=== PATIENT | female | born 2000 | race Hispanic/Latino ===

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

== ENCOUNTER 2019-03-06 23:37 | Emergency (ER) | payer OTHER ==
[2019-03-06 23:54] LABS: APPEARANCE,URINE Cloudy (CLEAR); BILIRUBIN,URINE Negative (NEGATIVE); COLOR,URINE Yellow (YELLOW); GLUCOSE, URINE (UA) Negative (NEGATIVE); KETONES,URINE Negative (NEGATIVE); LEUKOCYTE ESTERASE ,URINE Small (NEGATIVE); NITRATE,URINE Negative (NEGATIVE); OCCULT BLOOD,URINE Negative (NEGATIVE); PH,URINE 6.5 (5.0-8.0); PROTEIN,URINE Negative (NEGATIVE)
[2019-03-07 00:05] LABS: AMORPHOUS SEDIMENT,UR Few /LPF (None Seen); BACTERIA,URINE Few /HPF (None Seen); MUCUS,URINE Few LPF (None Seen); RBC,URINE None Seen /HPF (0-1); SQUAMOUS EPITHELIAL CELL,UR Moderate /HPF (0-2)
[2019-03-07] MEDS ORDERED: SODIUM CHLORIDE 0.9% 1000ML 1,000 ML IV ONE (00:40)
[2019-03-07] MEDS ORDERED: ACETAMINOPHEN EXTRA STRENGTH 500 MG TABLET ONE (00:41)
[2019-03-07 00:50] LABS: BASOPHILS % (AUTO) 0.5 % (0.0-5.0); EOSINOPHILS % (AUTO) 1.9 % (0.0-8.0); HEMATOCRIT 36.7 % (36-48); LYMPHOCYTES % (AUTO) 25.9 % (21.0-51.0); MEAN CORPUSCULAR HEMOGLOBIN 26.5 pg (27.0-33.0); MEAN CORPUSCULAR HGB CONC 32.5 g/dL (32.0-36.0); MEAN CORPUSCULAR VOLUME 81.3 fL (80-100); MONOCYTES % (AUTO) 5.2 % (3.0-13.0); NEUTROPHILS % (AUTO) 66.5 % (40.0-77.0); PLATELET COUNT (AUTO) 289 K/uL (130-400); RED BLOOD CELL COUNT(AUTO) 4.51 MIL/uL (4.00-5.50); RED CELL DISTRIBUTION WIDTH 15.6 % (11.0-15.5); WHITE BLOOD COUNT (AUTO) 16.7 K/uL (4.8-10.8)
[2019-03-07 01:00] LABS: CARBON DIOXIDE 27 mmol/L (21-32); CHLORIDE 106 mmol/L (101-111); CREATININE 0.6 mg/dL (0.5-1.5); GLOMERULAR FILTR. RATE CALC 137 mL/min (>60); GLUCOSE,RANDOM 92 mg/dL (70-105); POTASSIUM 3.6 mmol/L (3.5-5.1); SODIUM SERUM 142 mmol/L (136-145); UREA NITROGEN, BLOOD 12 mg/dL (7-18)
[2019-03-07 01:05] LABS: ALANINE AMINOTRANSFERASE 33 U/L (12-78); ALBUMIN 3.3 g/dL (3.5-5.0); ASPARTATE AMINOTRANSFERASE 19 U/L (10-37); BILIRUBIN,DIRECT < 0.1 mg/dL (0.0-0.3); BILIRUBIN,TOTAL 0.2 mg/dL (0.2-1.0); LIPASE 150 U/L (114-286); TOTAL PROTEIN, SERUM 7.6 g/dL (6.0-8.3)
== END 2019-03-07 03:52 | disposition home or self-care (01) ==
LOC: EDH 23:37
DX: R10.30 Lower abdominal pain, unspecified (principal); D72.829 Elevated white blood cell count, unspecified; R11.2 Nausea with vomiting, unspecified; Z72.0 Tobacco use
CPT/HCPCS: 36415; 76705; 76830; 80048; 80076; 81001; 81025; 83690; 85025; 87210; 87486; 87797; 99284; J7030

== ENCOUNTER 2019-03-13 09:30 | Emergency (ER) | payer OTHER | END 2019-03-13 10:35 | disposition home or self-care (01) | LOC: EDH 09:30 | DX: R10.30 Lower abdominal pain, unspecified (principal); M54.5 Low back pain; Z72.0 Tobacco use | CPT/HCPCS: 99281 ==

== ENCOUNTER 2019-09-10 23:38 | Emergency (ER) | payer BC, OTHER ==
[2019-09-11] MEDS ORDERED: AZITHROMYCIN 250 MG TABLET PO ONE (01:58)
[2019-09-11] MEDS ORDERED: CEFTRIAXONE SODIUM 500 MG VIAL ONE (01:58)
[2019-09-11] MEDS ORDERED: LIDOCAINE HCL-MPF 1% 2ML VIAL ONE (01:59)
== END 2019-09-11 03:04 | disposition home or self-care (01) ==
LOC: EDH 23:38
DX: B37.3 Candidiasis of vulva and vagina (principal); N72 Inflammatory disease of cervix uteri
CPT/HCPCS: 36415; 80053; 81001; 81025; 85025; 87088; 87210; 87486; 87797; 96372; 99283; J0696; J3490

== ENCOUNTER 2022-01-02 09:44 | Emergency (ER) | payer BC ==
[~2022-01-02] VITALS: Ht 175.3 cm; Wt 102.1 kg
[2022-01-02 09:45] VITALS: BP 114/75
[2022-01-02 10:28] LABS: BILIRUBIN,URINE NEGATIVE (NEGATIVE); COLOR,URINE YELLOW (YELLOW); GLUCOSE, URINE (UA) NEGATIVE (NEGATIVE); KETONES,URINE NEGATIVE (NEGATIVE); LEUKOCYTE ESTERASE ,URINE NEGATIVE Leu/uL (NEGATIVE); NITRATE,URINE NEGATIVE (NEGATIVE); OCCULT BLOOD,URINE SMALL (NEGATIVE); PH,URINE 8.5 (5.0-8.0); PROTEIN,URINE 20 mg/dL (NEGATIVE)
[2022-01-02 10:30] LABS: HCG,QUALITATIVE URINE NEGATIVE (NEGATIVE)
[2022-01-02 10:37] LABS: BACTERIA,URINE RARE /HPF (None Seen); MUCUS,URINE FEW LPF (None Seen); OTHER CASTS, URINE 2 /LPF (None Seen); SQUAMOUS EPITHELIAL CELL,UR RARE /HPF (0-2)
[2022-01-02 10:39] LABS: APPEARANCE,URINE HAZY (CLEAR)
[2022-01-02 10:40] LABS: BASOPHILS % (AUTO) 0.9 % (0.0-5.0); EOSINOPHILS % (AUTO) 1.1 % (0.0-8.0); HEMATOCRIT 37.2 % (36-48); LYMPHOCYTES % (AUTO) 32.4 % (21.0-51.0); MEAN CORPUSCULAR HEMOGLOBIN 25.7 pg (27.0-33.0); MEAN CORPUSCULAR HGB CONC 31.7 g/dL (32.0-36.0); MONOCYTES % (AUTO) 5.1 % (3.0-13.0); NEUTROPHILS % (AUTO) 60.2 % (40.0-77.0); PLATELET COUNT (AUTO) 330 K/uL (130-400); RED BLOOD CELL COUNT(AUTO) 4.59 MIL/uL (4.00-5.50); RED CELL DISTRIBUTION WIDTH 13.8 % (11.0-15.5); WHITE BLOOD COUNT (AUTO) 7.8 K/uL (4.8-10.8)
[2022-01-02 10:51] LABS: CREATININE 0.8 mg/dL (0.5-1.5); POTASSIUM 3.7 mmol/L (3.5-5.1)
[2022-01-02 11:00] LABS: ALBUMIN 3.6 g/dL (3.5-5.0); TOTAL PROTEIN, SERUM 7.8 g/dL (6.0-8.3)
== END 2022-01-02 12:56 | disposition home or self-care (01) ==
LOC: EDH 09:44
DX: N93.8 Other specified abnormal uterine and vaginal bleeding (principal); Z98.890 Other specified postprocedural states
CPT/HCPCS: 36415; 76856; 80053; 81001; 81025; 85025; 86850; 86900; 86901

== ENCOUNTER → 2022-04-24 | Emergency (ER) | payer BC, OTHER ==
[~2022-04-24] VITALS: Ht 177.8 cm; Wt 98.4 kg
[2022-04-24 07:51] VITALS: BP 124/78
== END | disposition left against medical advice (07) ==
LOC: EDH 07:49
DX: R21 Rash and other nonspecific skin eruption (principal); Z53.21 Procedure and treatment not carried out due to patient leaving prior to being seen by health care provider

== ENCOUNTER 2022-05-05 00:21 | Emergency (ER) | payer SELFPAY ==
[~2022-05-05] VITALS: Ht 177.8 cm; Wt 99.8 kg
[2022-05-05 00:22] VITALS: BP 116/72
== END 2022-05-05 02:48 | disposition left against medical advice (07) ==
LOC: EDH 00:21
DX: R10.9 Unspecified abdominal pain (principal); Z53.21 Procedure and treatment not carried out due to patient leaving prior to being seen by health care provider

== ENCOUNTER 2022-06-26 14:14 | Observation (INO) | payer MEDICAID ==
[~2022-06-26] VITALS: Ht 177.8 cm; Wt 106.6 kg
[2022-06-26 14:42] LABS: APPEARANCE,URINE CLOUDY (CLEAR); BILIRUBIN,URINE NEGATIVE (NEGATIVE); COLOR,URINE YELLOW (YELLOW); GLUCOSE, URINE (UA) NEGATIVE (NEGATIVE); KETONES,URINE NEGATIVE (NEGATIVE); LEUKOCYTE ESTERASE ,URINE 250 Leu/uL (NEGATIVE); NITRATE,URINE NEGATIVE (NEGATIVE); PROTEIN,URINE 10 mg/dL (NEGATIVE); UROBILINOGEN,URINE 0.2 mg/dL (0.2-1.0)
[2022-06-26 14:50] LABS: AMPHET/METH SCREEN,URINE NEGATIVE (NEGATIVE); BARBITURATE SCREEN, URINE NEGATIVE (NEGATIVE); BENZODIAZEPINES SCREEN,URINE NEGATIVE (NEGATIVE); CANNABINOID SCREEN,URINE NEGATIVE (NEGATIVE); COCAINE SCREEN,URINE NEGATIVE (NEGATIVE); OPIATE SCREEN,URINE NEGATIVE (NEGATIVE); PHENCYCLIDINE SCREEN,URINE NEGATIVE (NEGATIVE)
[2022-06-26] MEDS ORDERED: LACTATED RINGERS 1000ML 1,000 ML IV ONE (14:50)
[2022-06-26 14:54] LABS: BACTERIA,URINE RARE /HPF (None Seen); MUCUS,URINE RARE LPF (None Seen); SQUAMOUS EPITHELIAL CELL,UR FEW /HPF (0-2)
[2022-06-26] MEDS ORDERED: LACTATED RINGERS 1000ML IV SCH (15:00)
[2022-06-26 15:04] VITALS: BP 115/58
[2022-06-26] MEDS ORDERED: CEFTRIAXONE 1G VIAL IVP SCH (15:30)
== END 2022-06-26 16:20 | disposition home or self-care (01) ==
LOC: LDH 14:14
PROVIDERS: ADMIT Obstetrics & Gynecology; ATTEND Obstetrics & Gynecology
DX: O99.891 Other specified diseases and conditions complicating pregnancy (principal); M54.9 Dorsalgia, unspecified; Z3A.26 26 weeks gestation of pregnancy
CPT/HCPCS: 96374; 96361; 80305; 87088; 81001; 76805; G0378 ×2; G0379; J7120 ×2; J0696; 96360

== ENCOUNTER 2024-12-23 16:08 | Inpatient (IN) | payer BC, MEDICAID ==
[~2024-12-23] VITALS: Ht 175.3 cm; Wt 88.1 kg
[2024-12-23 17:14] LABS: IMMATURE GRANULOCYTE ABSOLUTE 0.02 K/uL (0-1); NUCLEATED RED BLOOD CELLS 0.0 % (0.0-0.19); PLATELET COUNT (AUTO) 297 K/uL (130-400); RED BLOOD CELL COUNT(AUTO) 4.54 MIL/uL (4.00-5.50); RED CELL DISTRIBUTION WIDTH 14.7 % (11.0-15.5); WHITE BLOOD COUNT (AUTO) 6.9 K/uL (4.8-10.8)
[2024-12-23] MEDS: 0.9%NACL 1000ML 1,000 ML IV ONE (17:16)
--- NOTE | 2024-12-23 17:22 | HMCIMG ---
EXAM: CR Chest, 1 View. CLINICAL HISTORY: cp COMPARISON: None provided. FINDINGS: LUNGS: The lungs show no infiltrate or other acute finding. PLEURAL SPACES: No pleural effusion or pneumothorax. MEDIASTINUM: Cardiac size and mediastinal contours within normal limits. BONES: No acute osseous abnormality. IMPRESSION: No acute cardiopulmonary pathology is evident. /[place]
[2024-12-23 17:24] LABS: CREATININE 0.6 mg/dL (0.5-1.0); GLOMERULAR FILTR. RATE CALC 128.0 mL/min (>90); GLUCOSE,RANDOM 88.0 mg/dL (70-105); SODIUM SERUM 142.0 mmol/L (136-145); UREA NITROGEN, BLOOD 15.0 mg/dL (7-18)
[2024-12-23 17:37] LABS: ASPARTATE AMINOTRANSFERASE 558.0 U/L (10-37); TOTAL PROTEIN, SERUM 8.2 g/dL (6.0-8.3)
--- NOTE | 2024-12-23 18:45 | ERN ---
ED Note History of Present Illness Stated Complaint: ABDOMINAL PAIN Chief Complaint: Abdominal Pain Time Seen by MD: 16:15 Time Seen by Midlevel: 16:15 Dictation: The patient is a 24-year-old female with a history of gallstones who presents to the emergency department with complaints of right upper abdominal pain that radiates to her chest associated with nausea and nonbloody vomiting. Patient denies any fevers but reports chills. Reports that she was seen at an urgent care a month ago and was told she had gallstones. Allergies: Coded Allergies: No Known Drug Allergies (Unverified Allergy, Unknown, 02/07/17) Home Meds No Active Prescriptions or Reported Meds Past Medical History Past Medical History: No Pertinent History Surgical History: Other Surgical History Other: SELWYN GRANADOS RN Note Reviewed/Agreed w/PFSH: Yes Review of System Dictation Constitutional: Negative for fever,chills, and weight loss Eyes: Negative for injury, pain,redness, and discharge ENT: Negative for injury,pain or swelling Cardiovascular: Negative for chest pain, palpitations, and edema Respiratory: Negative for shortness of breath, cough, and wheezing, Abdomen/GI: Negative for, diarrhea, and constipation positive for abdominal pain, nausea, vomiting Back: Negative for injury and pain : Negative for injury, bleeding and discharge MS/Extremity: Negative for injury and deformity Skin: Negative for rash, and discoloration Neuro: Negative for headache, weakness, numbness, tingling, and seizure Psych: Negative for suicide ideation, homicidal ideation, and hallucinations Initial Vital Sign VS Vital Signs Date Time Temp Pulse Resp B/P (MAP) Pulse Ox O2 Delivery O2 Flow Rate FiO2 12/23/24 16:09 98.2 80 18 126/91 96 Room Air 12/23/24 17:05 0 21 Physical Exam Dictation Vital Signs reviewed General Appearance: Alert, oriented x 3, no acute distress, well developed, nourished. Head and Face: non-traumatic. Eyes: PERRL, pink conjunctivas, eyelid no trauma, anterior chamber with arcus senilis. Ears: Pinnas intact and no signs of trauma or erythema ear canals clear and no discharge TM no erythema Nose: No discharge, no bleeding. Oropharynx: Mouth normal, tongue pink. pharynx clear,no erythema, tonsils no exudates, no abscesses noted, mucous membrane moist Neck: Supple, non-tender, no thyromegaly, no masses, no JVD, no bruits Breast:Deferred Chest:No tenderness, no crepitus, no paradoxical movement, no retractions Lungs:Clear, well-ventilated, symmetric, no rales, no wheezing, no rhonchi, no stridor, good breath sounds bilaterally Heart: Regular rate, regular rhythm, no murmur, no gallops Vascular: no peripheral edema, Abdomen: Soft, positive bowel sounds, nondistended, no guarding, Right upper abdominal tenderness no rebound, no masses no hepatomegaly, no splenomegaly, no Pineda's sign, no hernias. Rectal: Deferred Genital: Deferred Neurological: Normal speech, motor function intact, sensory function intact Musculoskeletal: Neck nontender, full range of motion, back nontender, full range of motion, Extremities: nontender, full range of motion Skin: Color pink, dry, no turgor, no rash, no lacerations, no abrasions, no contusions. Lymphatic: Deferred Results (Laboratory/Radiology) Laboratory/Radiology Laboratory Tests Test 12/23/24 13:46 12/23/24 17:06 Urine Color DARK-YELLOW (YELLOW) Urine Appearance CLEAR (CLEAR) Urine pH 6.5 (5.0-8.0) Urine Specific [place] 1.032 (1.001-1.031) Urine Protein 20 mg/dL (NEGATIVE) H Urine Glucose (UA) NEGATIVE mg/dL (NEGATIVE) Urine Ketones NEGATIVE mg/dL (NEGATIVE) Urine Occult Blood NEGATIVE (NEGATIVE) Urine Nitrate NEGATIVE (NEGATIVE) Urine Bilirubin 2 mg/dL (NEGATIVE) H Urine Urobilinogen 4.0 mg/dL (0.2-1.0) H Urine Leukocyte Esterase 25 Marcia/uL (NEGATIVE) H Urine RBC 2-5 /HPF (0-1) H Urine WBC 0-1 /HPF (0-1) Urine Squamous Epithelial Cells MANY /HPF (0-2) Urine Bacteria None /HPF (None Seen) Urine HCG, Qualitative NEGATIVE (NEGATIVE) White Blood Count 6.9 K/uL (4.8-10.8) Red Blood Count 4.54 MIL/uL (4.00-5.50) Hemoglobin 12.0 g/dL (12.0-16.0) Hematocrit 38.2 % (36-48) Mean Corpuscular Volume 84.1 fL (79-99) Mean Corpuscular Hemoglobin 26.4 pg (27.0-33.0) L Mean Corpuscular Hemoglobin Concent 31.4 g/dL (32.0-36.0) L Red Cell Distribution Width 14.7 % (11.0-15.5) Platelet Count 297 K/uL (130-400) Mean Platelet Volume 11.1 fL (7.5-10.5) H Immature Granulocyte % (Auto) 0.3 % (0-1) Neutrophils (%) (Auto) 63.3 % (40.0-77.0) Lymphocytes (%) (Auto) 26.6 % (21.0-51.0) Monocytes (%) (Auto) 7.9 % (3.0-13.0) Eosinophils (%) (Auto) 1.2 % (0.0-8.0) Basophils (%) (Auto) 0.7 % (0.0-5.0) Neutrophils # (Auto) 4.4 K/uL (1.8-7.7) Lymphocytes # (Auto) 1.8 K/uL (1.0-4.8) Monocytes # (Auto) 0.5 K/uL (0.1-1.0) Eosinophils # (Auto) 0.08 K/uL (0.00-0.70) Basophils # (Auto) 0.05 K/uL (0.00-0.20) Absolute Immature Granulocyte (auto 0.02 K/uL (0-1) Nucleated Red Blood Cells 0.0 % (0.0-0.19) Sodium Level 142 mmol/L (136-145) Potassium Level 3.4 mmol/L (3.5-5.1) L Chloride Level 103 mmol/L (101-111) Carbon Dioxide Level 28 mmol/L (21-32) Blood Urea Nitrogen 15 mg/dL (7-18) Creatinine 0.6 mg/dL (0.5-1.0) Glomerular Filtration Rate Calc 128 mL/min (>90) Random Glucose 88 mg/dL (70-105) Total Calcium 9.2 mg/dL (8.5-10.1) Total Bilirubin 2.1 mg/dL (0.2-1.0) H Direct Bilirubin 1.6 mg/dL (0.0-0.3) H Aspartate Amino Transf (AST/SGOT) 558 U/L (10-37) H Alanine Aminotransferase (ALT/SGPT) 681 U/L (12-78) *H Alkaline Phosphatase 147 U/L (50-136) H Troponin I High Sensitivity < 4 ng/L (4-50) L Total Protein 8.2 g/dL (6.0-8.3) Albumin 4.0 g/dL (3.5-5.0) Lipase 64 U/L (16-77) REASON: cp ORDERING PHYSICIAN: JOSE BLEVINS RARE/ENDANGERED SPECIES SPECIALIST PROCEDURE: CXR1VW - CHEST 1VW EXAM: CR Chest, 1 View. CLINICAL HISTORY: cp COMPARISON: None provided. FINDINGS: LUNGS: The lungs show no infiltrate or other acute finding. PLEURAL SPACES: No pleural effusion or pneumothorax. MEDIASTINUM: Cardiac size and mediastinal contours within normal limits. BONES: No acute osseous abnormality. IMPRESSION: No acute cardiopulmonary pathology is evident. /[place] REASON: abd pain ORDERING PHYSICIAN: JOSE BLEVINS RARE/ENDANGERED SPECIES SPECIALIST PROCEDURE: ABDRUQLTD - US ABDOMINAL RUQ\LTD EXAM:US Abdomen, Right Upper Quadrant. CLINICAL HISTORY: Abdominal pain TECHNIQUE: Right upper quadrant sonography performed with image documentation. COMPARISON: None provided. FINDINGS: LIVER: Within normal limits in size and echogenicity. No mass. GALLBLADDER: Multiple gallbladder calculi are seen, the largest measuring up to 8.2 mm. No significant wall thickening is seen. COMMON BILE DUCT: Within normal limits in size. PANCREAS: The visualized pancreas appears within normal limits. The distal pancreas is obscured by bowel gas. RIGHT KIDNEY: Unremarkable. Normal renal contours. No renal mass or calculus. No hydronephrosis. IMPRESSION: 1. Multiple gallbladder calculi /[place] Labs Reviewed?: Yes EKG: (+) rhythm (Sinus arrhythmia) EKG Comment: Date:12/23/24 Time:1613 Ventricular rate:68 NE interval:160 QRS duration:103 QT/QTc:404/404 EKG interpretation: Sinus arrhythmia Reviewed by ED Attending STEMI ED Course ED Course Orders Procedure Category Date Status Time 12 Lead Ekg Tracing- EKG 12/23/24 Logged Technical 16:18 Cbc With Differential LAB 12/23/24 Complete 16:37 Troponin I High LAB 12/23/24 Complete Sensitivity 16:37 ,Urine Test LAB 12/23/24 Complete 16:37 Urinalysis Profile LAB 12/23/24 Complete 16:37 0.9%Nacl 1000ml (Ns PHA 12/23/24 Complete 1000ml) 17:00 Morphine 4mg Syg PHA 12/23/24 Complete (Morphine 4mg Syg) 17:00 Ondansetron 4mg Inj PHA 12/23/24 Complete (Zofran 4mg Inj) 17:00 Pantoprazole 40mg Inj PHA 12/23/24 Complete (Protonix 40mg Inj 17:00 Lipase LAB 12/23/24 Complete 16:37 Basic Metabolic Panel LAB 12/23/24 Complete 16:37 Hepatic Function Panel LAB 12/23/24 Complete 16:37 Us Abdominal Ruq\Ltd US 12/23/24 Resulted 16:37 Chest 1vw RAD 12/23/24 Resulted 16:37 Zosyn 3.375gm+Ns 50ml PHA 12/23/24 Complete (Zosyn 3.375gm+Ns 20:00 Edm Admit Bridge Order ADM 12/23/24 Verified 20:11 Current Medications Medications (Trade) Dose Ordered Sig/Jo Ann Route PRN Reason Start Time Stop Time Status Last Admin Dose Admin Morphine Sulfate (morPHINE 4MG SYG) 4 mg ONCE ONCE IVP 12/23/24 17:00 12/23/24 17:01 DC 12/23/24 17:16 Ondansetron HCl (zoFRAN 4MG INJ) 4 mg ONCE ONCE IVP 12/23/24 17:00 12/23/24 17:01 DC 12/23/24 17:16 Pantoprazole Sodium (PROTonix 40MG INJ) 40 mg ONCE ONCE IVP 12/23/24 17:00 12/23/24 17:01 DC 12/23/24 17:16 Piperacillin Sod/ Tazobactam Sod (Zosyn 3.375gm+NS 50ml) 3.375 gm ONCE ONCE IV 12/23/24 20:00 12/23/24 20:01 DC Sodium Chloride 1,000 ml @ 0 mls/hr ONCE ONCE IV 12/23/24 17:00 12/23/24 17:01 DC 12/23/24 17:16 Vital Signs Date Time Temp Pulse Resp B/P (MAP) Pulse Ox O2 Delivery O2 Flow Rate FiO2 12/23/24 19:34 98.4 70 18 106/76 98 Room Air* 0 21 12/23/24 17:05 98.6 79 19 128/87 97 Room Air* 0 21 12/23/24 16:09 98.2 80 18 126/91 96 Room Air Medical Decision Making MDM MDM: The patient is a 24-year-old female with a history of gallstones who presents to the emergency department with complaints of right upper abdominal pain that radiates to her chest associated with nausea and nonbloody vomiting. Patient denies any fevers but reports chills. Reports that she was seen at an urgent care a month ago and was told she had gallstones. CBC showed no leukocytosis, no anemia, chemistry showed mild hypokalemia, total bilirubin of 2.1, elevated liver enzymes, negative troponin, negative lipase, us revealed multiple gallbladder calculi, CBD at 8. Patient will be admitted for further evaluation and management. Differential diagnosis: Cholelithiasis, biliary colic, cholecystitis, gastritis Comorbidities: Cholelithiasis Tests considered and not ordered secondary to shared decision making include: none Previous outside records reviewed: none Risk of complication and/or morbidity or mortality of patient management: The patient meets criteria for admission. Need for emergency major/minor surgery: No There are no social concerns with this patient. I independently interpreted the tests I ordered (labs, urinalysis, etc.). I discussed the case with the hospitalist for admission. Dianelys who accepts admission. I discussed the case with the following specialists: none. Historian: pateint. I independently interpreted imaging studies and EKGs that I ordered (US, CT, XR, EKG, etc.). External chart review: none. Medical management and examination interpretation discussions were had by me with other qualified healthcare professionals as indicated for the patient's care. DX & DISP Disposition: Inpatient Decision to Admit Date: Dec 23, 2024 Decision to Admit Time: 20:15 Departure Impression: Primary Impression: Choledocholithiasis Additional Impressions: Transaminitis, Total bilirubin, elevated, Abdominal pain Condition: Stable Scripts No Active Prescriptions or Reported Meds Referrals: GERMAIN GARZA DO (PCP) I have reviewed the case, and I agree with, Diagnosis and Plan JOSE BLEVINS [facility] Dec 23, 2024 18:45
--- NOTE | 2024-12-23 19:03 | HMCIMG ---
EXAM:US Abdomen, Right Upper Quadrant. CLINICAL HISTORY: Abdominal pain TECHNIQUE: Right upper quadrant sonography performed with image documentation. COMPARISON: None provided. FINDINGS: LIVER: Within normal limits in size and echogenicity. No mass. GALLBLADDER: Multiple gallbladder calculi are seen, the largest measuring up to 8.2 mm. No significant wall thickening is seen. COMMON BILE DUCT: Within normal limits in size. PANCREAS: The visualized pancreas appears within normal limits. The distal pancreas is obscured by bowel gas. RIGHT KIDNEY: Unremarkable. Normal renal contours. No renal mass or calculus. No hydronephrosis. IMPRESSION: 1. Multiple gallbladder calculi /[place]as[place]
[2024-12-23 19:38] LABS: APPEARANCE,URINE CLEAR (CLEAR); GLUCOSE, URINE (UA) NEGATIVE (NEGATIVE); LEUKOCYTE ESTERASE ,URINE 25 Leu/uL (NEGATIVE); NITRATE,URINE NEGATIVE (NEGATIVE); OCCULT BLOOD,URINE NEGATIVE (NEGATIVE)
[2024-12-23 19:45] LABS: HCG,QUALITATIVE URINE NEGATIVE (NEGATIVE)
[2024-12-23 19:51] LABS: ADD UA MICROSCOPIC YES
[2024-12-23 19:53] LABS: SQUAMOUS EPITHELIAL CELL,UR MANY /HPF (0-2)
--- NOTE | 2024-12-23 19:53 | HP ---
[facility] Date of Service: Dec 23, 2024 Time of Service: 19:53 PCP: Raza Varghese HISTORY OF PRESENT ILLNESS: This is a 24-year-old female with past medical history of gallstone who presents to the ED for complaints of right upper quadrant pain which travels towards her right chest associated with nausea and vomiting started last Wednesday.Patient states she had pizza last and following day after waking up she started having abdominal pain around right upper quadrant and pain intensity has g radually intensified today and she became nauseated and had 1 episode of nonbloody vomiting associated with chills so she decided to come to the ED for evaluation.Patient reports every time she eats pizza this happened to her,last time a month ago she had similar problem after she had pizza she started having pain and she was told a month ago at the urgent care she has gallstones.Patient reports her last bowel movement was 1 week ago. Patient reports,she always have spicy food in her daily meal. Seen and examined patient in the ER awaker,alert and coherent,appears comfortable.Patient reports she just had pain medication she said.Patient denies chest pain,palpitation shortness of breath and diarrhea. Latest vital signs temperature 98.4, heart rate 70, blood pressure 106/76 saturation 98% on room air. Labs: Hemoglobin 12, hematocrit 38, platelet count 297. Potassium 3.4, total bilirubin 2.1, direct bilirubin 1.6, AST 558 ALT 681 alkaline phosphatase 147 troponin less than four. Urinalysis significant for protein, urine bilirubin two, urine urobilinogen four leuko esterase 25 urine RBC 2-5 urine hCG negative. Abdominal ultrasound result revealed multiple gallbladder calculi. Chest x-ray result is unremarkable. While in the ER patient received 1 L NS anuradha raz, morphine 4 mg IV, Zofran 4 mg IV Protonix 40 mg IV and Zosyn IV. We will admit patient for further medical management. REVIEW OF SYSTEMS CONSTITUTIONAL: Complaints of chills Denies fevers night sweats. No uni ntentional weight loss reported. NEUROLOGICAL: Denies headache, amaurosis fugax, motor weakness, sensory deficit, vertigo/spinning sensation, gait abnormalities, or tremors. ENT: No hearing loss, otalgia, otorrhea, rhinitis, rhinorrhea, hoarseness, or sore throat. CARDIOVASCULAR: Denies any exertional angina, dyspnea on exertion, orthopnea, paroxysmal nocturnal dyspnea, palpitations, life-threatening arrhythmias, claudication. PULMONARY: Denies any shortness of breath, cough, phlegm/sputum, hemoptysis, pleuritic chest pain. SLEEP: Denies morning headaches, daytime somnolence or napping. Denies difficulty falling asleep, staying asleep, waking from sleep. Denies knowledge of snoring. GASTROINTESTINAL: Complaints of right upper quadrant pain associated nausea , vomiting and constipation Denies any type of dysphagia to either liquids or solids. Denies pyrosis, early satiety, diarrhea or changes in stool consistency or caliber. Denies coffee-ground emesis, hematemesis, hematochezia, or melanotic stools. GENITOURINARY: Denies frequency, urgency, nocturia, hematuria or incontinence (Storage/Irritative symptoms.) Low urinary stream, straining to void, urinary intermittency or hesitancy, splitting of the voiding stream, terminal dribbling. ENDOCRINOLOGIC: Denies polyuria, polydipsia, polyphagia or heat/cold intolerances. HEMATOLOGIC: Denies thrombophilia/previous clots, or coagulopathy/bleeding disorders. ONCOLOGIC: Denies personal history of malignancy. DERMATOLOGIC: Denies rashes or pruritus. PSYCHIATRIC: Denies any suicidal or homicidal ideation. Denies hallucinations. PAST MEDICAL HISTORY: [ Gallstones] PAST SURGICAL HISTORY: [ Tummy tuck three years ago in [facility] ] PAST SOCIAL HISTORY: [ Patient lives with mother. Patient states she smoke two cigarettes per day. Patient denies alcohol and recreational drug use] FAMILY HISTORY: [ Hypertension] Coded Allergies: No Known Drug Allergies (Unverified Allergy, Unknown, 02/07/17) PHYSICAL EXAM GENERAL APPEARANCE: The patient is awake, alert, and oriented, in no acute cardiopulmonary distress. NEUROLOGICAL: Cranial nerves II-XII grossly intact. Motor is 5/5 in bilateral upper and lower extremities proximal to distal. No sensory deficits. HEENT: Face is symmetric. Pupils are equal and reactive. Extraocular movements are intact. NECK: Supple. No JVD. No thyromegaly. No submental, submandibular, pre- /postauricular, occipital or supraclavicular lymphadenopathy. CHEST: Normal chest expansion. No Telemetry. LUNGS: Absence of any rales, rhonchi or any wheezing. CARDIOVASCULAR: Regular. S1 and S2 normal. No appreciable rubs, murmurs or gallops. ABDOMEN: Soft and nondistended. There is no rebound, voluntary guarding, or rigidity. : Deferred. No [place]. EXTREMITIES: Non-edematous and not cyanotic. No clubbing. Good capillary refill. SKIN: No skin breakdown. Vital Sign (Last 24 Hours) 12/23/24 19:34 Temp 98.4 Pulse 70 Resp 18 B/P (MAP) 106/76 Pulse Ox 98 O2 Delivery Room Air* O2 Flow Rate 0 FiO2 21 LABS: Laboratory: Test 12/23/24 17:06 12/23/24 13:46 Range/Units White Blood Count 6.9 4.8-10.8 K/uL Red Blood Count 4.54 4.00-5.50 MIL/uL Hemoglobin 12.0 12.0-16.0 g/dL Hematocrit 38.2 36-48 % Mean Corpuscular Volume 84.1 79-99 fL Mean Corpuscular Hemoglobin 26.4 L 27.0-33.0 pg Mean Corpuscular Hemoglobin Concent 31.4 L 32.0-36.0 g/dL Red Cell Distribution Width 14.7 11.0-15.5 % Platelet Count 297 130-400 K/uL Mean Platelet Volume 11.1 H 7.5-10.5 fL Immature Granulocyte % (Auto) 0.3 0-1 % Neutrophils (%) (Auto) 63.3 40.0-77.0 % Lymphocytes (%) (Auto) 26.6 21.0-51.0 % Monocytes (%) (Auto) 7.9 3.0-13.0 % Eosinophils (%) (Auto) 1.2 0.0-8.0 % Basophils (%) (Auto) 0.7 0.0-5.0 % Neutrophils # (Auto) 4.4 1.8-7.7 K/uL Lymphocytes # (Auto) 1.8 1.0-4.8 K/uL Monocytes # (Auto) 0.5 0.1-1.0 K/uL Eosinophils # (Auto) 0.08 0.00-0.70 K/uL Basophils # (Auto) 0.05 0.00-0.20 K/uL Absolute Immature Granulocyte (auto 0.02 0-1 K/uL Nucleated Red Blood Cells 0.0 0.0-0.19 % Sodium Level 142 136-145 mmol/L Potassium Level 3.4 L 3.5-5.1 mmol/L Chloride Level 103 101-111 mmol/L Carbon Dioxide Level 28 21-32 mmol/L Blood Urea Nitrogen 15 7-18 mg/dL Creatinine 0.6 0.5-1.0 mg/dL Glomerular Filtration Rate Calc 128 >90 mL/min Random Glucose 88 70-105 mg/dL Total Calcium 9.2 8.5-10.1 mg/dL Total Bilirubin 2.1 H 0.2-1.0 mg/dL Direct Bilirubin 1.6 H 0.0-0.3 mg/dL Aspartate Amino Transf (AST/SGOT) 558 H 10-37 U/L Alanine Aminotransferase (ALT/SGPT) 681 *H 12-78 U/L Alkaline Phosphatase 147 H 50-136 U/L Troponin I High Sensitivity < 4 L 4-50 ng/L Total Protein 8.2 6.0-8.3 g/dL Albumin 4.0 3.5-5.0 g/dL Lipase 64 16-77 U/L Urine Color DARK-YELLOW YELLOW Urine Appearance CLEAR CLEAR Urine pH 6.5 5.0-8.0 Urine Specific [place] 1.032 H 1.001-1.031 Urine Protein 20 H NEGATIVE mg/dL Urine Glucose (UA) NEGATIVE NEGATIVE mg/dL Urine Ketones NEGATIVE NEGATIVE mg/dL Urine Occult Blood NEGATIVE NEGATIVE Urine Nitrate NEGATIVE NEGATIVE Urine Bilirubin 2 H NEGATIVE mg/dL Urine Urobilinogen 4.0 H 0.2-1.0 mg/dL Urine Leukocyte Esterase 25 H NEGATIVE Marcia/uL Urine HCG, Qualitative NEGATIVE NEGATIVE DIAGNOSTICS / RADIOLOGY: [ ] ASSESSMENT: Suspected Choledocholithiasis POA Right upper quadrant abdominal pain POA Transaminitis POA Suspected urinary tract infection POA Hypokalemia POA Nicotine dependence POA History of gallstones POA PLAN: We will admit patient in medical surgical We will keep patient nothing by mouth We will start famotidine 20 mg IV b.i.d. for GI prophylaxis We will continue Zosyn IV Q 12 hours for empiric coverage We will start NS @ 100 ml / hr x2 bags and re evaluate We will replace electrolytes as needed per protocol We will add prn medication for fever,pain,cough , nausea and vomiting Counseled on smoking cessation We will obtain MRCP We will seek general surgery consultation We will request labs in am Further orders to follow depending on above results Case discussed with attending physician and came up with above treatment and plan of care. ADVANCED CARE PLANNING 1. Which of the following were discussed? Hospice Care - No Therapeutic options - Yes Advance Directives - No Other discussions - 2. Discussed with who? Patient 3. Voluntary nature of this service was explained to the patient? Yes 4. Amount of time spent - _22 min 5. Reviewed by Physician? (if this service was performed by NPP) Yes Patient seen and examined by me. Agree with note by HEAD BONE GRINDER SEE ADDITIONAL ORDERS PER CHART DISCUSSED WITH NURSING STAFF YRIS GUILLAUME RN FACULTY Dec 23, 2024 19:53
[2024-12-23] MEDS ORDERED: PoTASSium chl 10% ELIXIR 20MEQ 20 MEQ/15 ML UDCUP PO PRN (20:00)
[2024-12-23] MEDS ORDERED: PoTASSium chloRIDE 20MEQ ER 20 MEQ ERTAB PO PRN (20:00)
[2024-12-23] MEDS: ZOSYN 3.375GM +NS 50ML IV ONE (20:19)
[2024-12-23] MEDS: 0.9%NACL 1000ML 1,000 ML IV SCH (20:19)
[2024-12-23] MEDS: FAMOTIDINE 20MG VIAL IV SCH (20:22)
--- NOTE | 2024-12-23 20:53 | EKG ---
[facility] Test Date: 2024-12-23 Test Time: 16:13:57 Pat Name: JOHNY PALENCIA Department: EDHIP Room: 313 Gender: F Sole Stitcher Hand: [id number] : 2000 Requested By: JOSE BLEVINS Order Number: [id number] Reading MD: Rusty Hartley Measurements Intervals [place] Rate: 68 P: 48 ME: 160 QRS: 53 QRSD: 103 T: 32 QT: 381 QTc: 404 Interpretive Statements Sinus arrhythmia Compared to ECG 05/16/2018 02:58:34 Sinus tachycardia no longer present Myocardial infarct finding no longer present Electronically Signed On 12-24-2024 21:51:12 CDT by Rusty Hartley Please click the below link to view image of tracing.
--- NOTE | 2024-12-23 21:00 | NUR ---
PATIENT REPORT GIVEN TO BRITTANY HECTOR
[2024-12-23 21:20] VITALS: BP 101/60; PULSE 53; RESP 20; TEMP 98
[2024-12-24] VITALS (9 sets, daily range): BP systolic 92–149; BP diastolic 52–75; PULSE 54–81; RESP 18–20; TEMP 97.8–98.5; O2SAT 98
[2024-12-24] MEDS: ZOSYN 3.375GM +NS 50ML IV SCH (03:53)
[2024-12-24 04:45] LABS: IMMATURE GRANULOCYTE ABSOLUTE 0.00 K/uL (0-1); NUCLEATED RED BLOOD CELLS 0.0 % (0.0-0.19); PLATELET COUNT (AUTO) 254 K/uL (130-400); RED BLOOD CELL COUNT(AUTO) 3.78 MIL/uL (4.00-5.50); RED CELL DISTRIBUTION WIDTH 14.7 % (11.0-15.5); WHITE BLOOD COUNT (AUTO) 6.0 K/uL (4.8-10.8)
[2024-12-24 05:04] LABS: ASPARTATE AMINOTRANSFERASE 253.0 U/L (10-37); CREATININE 0.6 mg/dL (0.5-1.0); GLOMERULAR FILTR. RATE CALC 128.0 mL/min (>90); GLUCOSE,RANDOM 93.0 mg/dL (70-105); LDL DIRECT 75.0 mg/dL (0-99); SODIUM SERUM 143.0 mmol/L (136-145); TOTAL PROTEIN, SERUM 6.5 g/dL (6.0-8.3); UREA NITROGEN, BLOOD 15.0 mg/dL (7-18)
[2024-12-24] MEDS: MAGNESIUM 2GM PREMIX 50ML 50 ML IV PRN (08:52)
--- NOTE | 2024-12-24 11:04 | CONS ---
GENERAL SURGERY CONSULTATION NOTE Date/Time Patient Seen: [12/24/2024 0915 ] Requesting Physician: [ ] Reason for Consultation: [Symptomatic cholelithiasis, possible c holedocholithiasis ] History of Present Illness: [This is a 24-year-old female with past medical history of gallstone who presents to the ED for complaints of right upper quadrant pain which travels towards her right chest associated with nausea and vomiting started last Wednesday.Patient states she had pizza last and following day after waking up she started having abdominal pain around right upper quadrant and pain intensity has gradually intensified today and she became nauseated and had 1 episode of nonbloody vomiting associated with chills so she decided to come to the ED for evaluation.Patient reports every time she eats pizza this happened to her,last time a month ago she had similar problem after she had pizza she started having pain and she was told a month ago at the urgent care she has gallstones.Patient reports her last bowel movement was 1 week ago. Patient reports,she always have spicy food in her daily meal. Seen and examined patient in the ER awaker,alert and coherent,appears comfortable.Patient reports she just had pain medication she said.Patient denies chest pain,palpitation shortness of breath and diarrhea. Latest vital signs temperature 98.4, heart rate 70, blood pressure 106/76 saturation 98% on room air. Labs: Hemoglobin 12, hematocrit 38, platelet count 297. Potassium 3.4, total bilirubin 2.1, direct bilirubin 1.6, AST 558 ALT 681 alkaline phosphatase 147 troponin less than four. Urinalysis significant for protein, urine bilirubin two, urine urobilinogen four leuko esterase 25 urine RBC 2-5 urine hCG negative. Abdominal ultrasound result revealed multiple gallbladder calculi. Chest x-ray result is unremarkable. While in the ER patient received 1 L NS bolus, morphine 4 mg IV, Zofran 4 mg IV Protonix 40 mg IV and Zosyn IV. Past Medical History: [ ] Past Surgical History: [none ] Family History: [ ] Social History: [ ] Habits: [Never] smoker. [Denies] alcohol consumption. [Denies] illicit drug use Current Medications Medications (Trade) Dose Ordered Sig/Jo Ann Route Start Time Stop Time Status Last Admin Dose Admin Famotidine (Pepcid 20mg Vial) 20 mg BID IV 12/23/24 21:00 01/22/25 20:59 12/24/24 08:47 20 MG Piperacillin Sod/ Tazobactam Sod (Zosyn 3.375gm+NS 50ml) 3.375 gm Q8H IV 12/24/24 04:00 01/03/25 03:59 12/24/24 03:53 3.375 GM Sodium Chloride 1,000 ml @ 100 mls/hr Q10H IV 12/23/24 20:00 01/22/25 19:59 12/23/24 20:19 100 MLS/HR Review of Systems: CONST: [No fever, fatigue, or weight changes.] EYES: [No recent vision problems.] ENT: [No congestion, ear pain, or sore throat.] C/V: [No chest pain, palpitations, or edema.] RESP: [No cough, congestion, wheezing or shortness of breath.] GI: [Right upper quadrant pain, nausea and vomiting.] : [No dysuria.] SKIN: [No rash.] NEURO: [No headache, focal numbness or weakness.] Physical Examination: GENERAL: [No acute distress, female, comfortably resting in bed.] HEAD: [Normocephalic.] EYES: [Nonicteric sclera bilaterally] ENT: [Hearing grossly intact.] NECK: [Supple.] LUNGS: [Clear breath sounds bilaterally.] HEART: [Normal rate and rhythm.] VASC: [Peripheral pulses +2 bilaterally.] ABD: [RUQ tenderness on palpation, Bowel sounds normal, soft, no guarding or rigidity.] : [Not examined] EXT: [No edema.] SKIN: [No rashes or lesions noted.] NEURO: [Awake, alert, and oriented x3. No focal sensory or strength deficits noted.] Vital Signs (last 8hr) Date Time Temp Pulse Resp B/P (MAP) Pulse Ox O2 Delivery O2 Flow Rate FiO2 12/24/24 07:58 97.9 65 18 94/52 98 Room Air 12/24/24 04:14 98.2 63 18 108/68 96 Room Air Laboratory: [ ] Hematology Labs: Test 12/24/24 04:35 Range/Units White Blood Count 6.0 4.8-10.8 K/uL Red Blood Count 3.78 L 4.00-5.50 MIL/uL Hemoglobin 9.9 L 12.0-16.0 g/dL Hematocrit 31.4 L 36-48 % Mean Corpuscular Volume 83.1 79-99 fL Mean Corpuscular Hemoglobin 26.2 L 27.0-33.0 pg Mean Corpuscular Hemoglobin Concent 31.5 L 32.0-36.0 g/dL Red Cell Distribution Width 14.7 11.0-15.5 % Platelet Count 254 130-400 K/uL Mean Platelet Volume 11.2 H 7.5-10.5 fL Immature Granulocyte % (Auto) 0.0 0-1 % Neutrophils (%) (Auto) 50.9 40.0-77.0 % Lymphocytes (%) (Auto) 38.5 21.0-51.0 % Monocytes (%) (Auto) 7.8 3.0-13.0 % Eosinophils (%) (Auto) 2.0 0.0-8.0 % Basophils (%) (Auto) 0.8 0.0-5.0 % Neutrophils # (Auto) 3.1 1.8-7.7 K/uL Lymphocytes # (Auto) 2.3 1.0-4.8 K/uL Monocytes # (Auto) 0.5 0.1-1.0 K/uL Eosinophils # (Auto) 0.12 0.00-0.70 K/uL Basophils # (Auto) 0.05 0.00-0.20 K/uL Absolute Immature Granulocyte (auto 0.00 0-1 K/uL Nucleated Red Blood Cells 0.0 0.0-0.19 % Chemistry Labs: Test 12/24/24 04:35 12/23/24 17:06 Range/Units Sodium Level 143 136-145 mmol/L Potassium Level 3.8 3.5-5.1 mmol/L Chloride Level 109 101-111 mmol/L Carbon Dioxide Level 26 21-32 mmol/L Blood Urea Nitrogen 15 7-18 mg/dL Creatinine 0.6 0.5-1.0 mg/dL Glomerular Filtration Rate Calc 128 >90 mL/min Random Glucose 93 70-105 mg/dL Total Calcium 8.4 L 8.5-10.1 mg/dL Magnesium Level 1.80 1.80-2.40 mg/dL Total Bilirubin 2.0 H 0.2-1.0 mg/dL Aspartate Amino Transf (AST/SGOT) 253 H 10-37 U/L Alanine Aminotransferase (ALT/SGPT) 451 #H 12-78 U/L Alkaline Phosphatase 119 50-136 U/L Total Protein 6.5 # 6.0-8.3 g/dL Albumin 3.1 #L 3.5-5.0 g/dL Triglycerides Level 55 30-200 mg/dL Cholesterol Level 142 <200 mg/dL LDL Cholesterol 75 0-99 mg/dL HDL Cholesterol 50 35-85 mg/dL Direct Bilirubin 1.6 H 0.0-0.3 mg/dL Troponin I High Sensitivity < 4 L 4-50 ng/L Lipase 64 16-77 U/L Diagnostics / Radiology: [place] [id number] [address] IMAGING REPORT Signed PATIENT: SLIME MR#: [id number] : 2000 SEX: F AGE: 24 LOCATION: [facility] ORDER 38 STATUS: [facility] REPORT#: [id number] SERVICE 36 REASON: abd pain ORDERING PHYSICIAN: JOSE BLEVINS PROCEDURE: [id number] - US ABDOMINAL RUQ\LTD EXAM:US Abdomen, Right Upper Quadrant. CLINICAL HISTORY: Abdominal pain TECHNIQUE: Right upper quadrant sonography performed with image documentation. COMPARISON: None provided. FINDINGS: LIVER: Within normal limits in size and echogenicity. No mass. GALLBLADDER: Multiple gallbladder calculi are seen, the largest measuring up to 8.2 mm. No significant wall thickening is seen. COMMON BILE DUCT: Within normal limits in size. PANCREAS: The visualized pancreas appears within normal limits. The distal pancreas is obscured by bowel gas. RIGHT KIDNEY: Unremarkable. Normal renal contours. No renal mass or calculus. No hydronephrosis. IMPRESSION: 1. Multiple gallbladder calculi /[place] DICTATED BY: LEO JACK MD DATE: 12/23/242001 ELECTRONICALLY SIGNED BY: ELO JACK MD DATE: 12/23/242001 Assessment: [ 24-year-old female admitted with symptomatic cholelithiasis and concerns for choledocholithiasis] Plan: [MRCP scheduled for today if positive, patient will be needing ERCP by GI If MRCP is negative, patient will be scheduled for cholecystectomy surgery during this hospitalization Keep patient NPO until MRCP completed then patient may be started on clear liquids Continue with IV fluids and IV antibiotics Repeat labs in a.m. Surgical team will continue to follow Dr. Knutson updated on patient's status Surgical case discussed with my supervising physician Plan of care was formulated and agreed upon We appreciate the hospitalist team for allowing us to participate in this patient's care Greater than 55 minutes spent examining patient, reviewing chart and working on documentation ] ATTESTATION BY PHYSICIAN I have seen and examined the patient. I reviewed the documentation, medical d ecision making, and treatment plan as noted by the mid-level provider above. I agree with the findings and plan of care. MD SURYA Castro LETICIA A APRN Dec 24, 2024 11:04
--- NOTE | 2024-12-24 13:25 | PN ---
[facility] PROGRESS NOTE Date of Service: Dec 24, 2024 Time of Service: 13:[address] Canales SUBJECTIVE: [ 12/23 This is a 24-year-old female with past medical history of gallstone who presents to the ED for complaints of right upper quadrant pain which travels towards her right chest associated with nausea and vomiting started last Wednesday.Patient states she had pizza last and following day after waking up she started having abdominal pain around right upper quadrant and pain intensity has gradually intensified today and she became nauseated and had 1 episode of nonbloody vomiting associated with chills so she decided to come to the ED for evaluation.Patient reports every time she eats pizza this happened to her,last time a month ago she had similar problem after she had pizza she started having pain and she was told a month ago at the urgent care she has gallstones.Patient reports her last bowel movement was 1 week ago. Patient reports,she always have spicy food in her daily meal. Seen and examined patient in the ER awaker,alert and coherent,appears comfortable.Patient reports she just had pain medication she said.Patient denies chest pain,palpitation shortness of breath and diarrhea. Latest vital signs temperature 98.4, heart rate 70, blood pressure 106/76 saturation 98% on room air. Labs: Hemoglobin 12, hematocrit 38, platelet count 297. Potassium 3.4, total bilirubin 2.1, direct bilirubin 1.6, AST 558 ALT 681 alkaline phosphatase 147 troponin less than four. Urinalysis significant for protein, urine bilirubin two, urine urobilinogen four leuko esterase 25 urine RBC 2-5 urine hCG negative. Abdominal ultrasound result revealed multiple gallbladder calculi. Chest x-ray result is unremarkable. While in the ER patient received 1 L NS bolus, morphine 4 mg IV, Zofran 4 mg IV Protonix 40 mg IV and Zosyn IV. We will admit patient for further medical management. 12/24 patient was seen by WOOLEN TESTER and physician during rounding in room 313. Patient was evaluated by the surgeon and at this moment they recommending MRCP. If MRCP we will be negative patient will be scheduled for cholecystectomy during this hospitalization. NPO for procedure. GI consulted for ERCP. Urinalysis positive for leukocytosis. Final urine culture still pending. Patient continues to be on Zosyn. We will continue to monitor patient in the meantime. A.m. labs. ] REVIEW OF SYSTEMS CONSTITUTIONAL: Denies any chills Denies fevers night sweats. No unintentional weight loss reported. NEUROLOGICAL: Denies headache, amaurosis fugax, motor weakness, sensory deficit, vertigo/spinning sensation, gait abnormalities, or tremors. ENT: No hearing loss, otalgia, otorrhea, rhinitis, rhinorrhea, hoarseness, or sore throat. CARDIOVASCULAR: Denies any exertional angina, dyspnea on exertion, orthopnea, paroxysmal nocturnal dyspnea, palpitations, life-threatening arrhythmias, claudication. PULMONARY: Denies any shortness of breath, cough, phlegm/sputum, hemoptysis, pleuritic chest pain. SLEEP: Denies morning headaches, daytime somnolence or napping. Denies difficulty falling asleep, staying asleep, waking from sleep. Denies knowledge of snoring. GASTROINTESTINAL: Complaints of right upper quadrant pain associated nausea , vomiting and constipation Denies any type of dysphagia to either liquids or solids. Denies pyrosis, early satiety, diarrhea or changes in stool consistency or caliber. Denies coffee-ground emesis, hematemesis, hematochezia, or melanotic stools. GENITOURINARY: Denies frequency, urgency, nocturia, hematuria or incontinence (Storage/Irritative symptoms.) Low urinary stream, straining to void, urinary intermittency or hesitancy, splitting of the voiding stream, terminal dribbling. ENDOCRINOLOGIC: Denies polyuria, polydipsia, polyphagia or heat/cold intolerances. HEMATOLOGIC: Denies thrombophilia/previous clots, or coagulopathy/bleeding disorders. ONCOLOGIC: Denies personal history of malignancy. DERMATOLOGIC: Denies rashes or pruritus. PSYCHIATRIC: Denies any suicidal or homicidal ideation. Denies hallucinations. PHYSICAL EXAM GENERAL APPEARANCE: The patient is awake, alert, and oriented, in no acute cardiopulmonary distress. NEUROLOGICAL: Cranial nerves II-XII grossly intact. Motor is 5/5 in bilateral upper and lower extremities proximal to distal. No sensory deficits. HEENT: Face is symmetric. Pupils are equal and reactive. Extraocular movements are intact. NECK: Supple. No JVD. No thyromegaly. No submental, submandibular, pre- /postauricular, occipital or supraclavicular lymphadenopathy. CHEST: Normal chest expansion. No Telemetry. LUNGS: Absence of any rales, rhonchi or any wheezing. CARDIOVASCULAR: Regular. S1 and S2 normal. No appreciable rubs, murmurs or gallops. ABDOMEN: Soft and nondistended. There is no rebound, voluntary guarding, or rigidity. : Deferred. No [place]. EXTREMITIES: Non-edematous and not cyanotic. No clubbing. Good capillary refill. SKIN: No skin breakdown. Vital Signs (last 8hr) Date Time Temp Pulse Resp B/P (MAP) Pulse Ox O2 Delivery O2 Flow Rate FiO2 12/24/24 12:41 98.1 66 19 100/60 94 Room Air 12/24/24 08:00 98 Room Air* 0 21 12/24/24 07:58 97.9 65 18 94/52 98 Room Air LABS: Laboratory: Test 12/24/24 04:35 12/23/24 17:06 12/23/24 13:46 Range/Units White Blood Count 6.0 4.8-10.8 K/uL Red Blood Count 3.78 L 4.00-5.50 MIL/uL Hemoglobin 9.9 L 12.0-16.0 g/dL Hematocrit 31.4 L 36-48 % Mean Corpuscular Volume 83.1 79-99 fL Mean Corpuscular Hemoglobin 26.2 L 27.0-33.0 pg Mean Corpuscular Hemoglobin Concent 31.5 L 32.0-36.0 g/dL Red Cell Distribution Width 14.7 11.0-15.5 % Platelet Count 254 130-400 K/uL Mean Platelet Volume 11.2 H 7.5-10.5 fL Immature Granulocyte % (Auto) 0.0 0-1 % Neutrophils (%) (Auto) 50.9 40.0-77.0 % Lymphocytes (%) (Auto) 38.5 21.0-51.0 % Monocytes (%) (Auto) 7.8 3.0-13.0 % Eosinophils (%) (Auto) 2.0 0.0-8.0 % Basophils (%) (Auto) 0.8 0.0-5.0 % Neutrophils # (Auto) 3.1 1.8-7.7 K/uL Lymphocytes # (Auto) 2.3 1.0-4.8 K/uL Monocytes # (Auto) 0.5 0.1-1.0 K/uL Eosinophils # (Auto) 0.12 0.00-0.70 K/uL Basophils # (Auto) 0.05 0.00-0.20 K/uL Absolute Immature Granulocyte (auto 0.00 0-1 K/uL Nucleated Red Blood Cells 0.0 0.0-0.19 % Sodium Level 143 136-145 mmol/L Potassium Level 3.8 3.5-5.1 mmol/L Chloride Level 109 101-111 mmol/L Carbon Dioxide Level 26 21-32 mmol/L Blood Urea Nitrogen 15 7-18 mg/dL Creatinine 0.6 0.5-1.0 mg/dL Glomerular Filtration Rate Calc 128 >90 mL/min Random Glucose 93 70-105 mg/dL Total Calcium 8.4 L 8.5-10.1 mg/dL Magnesium Level 1.80 1.80-2.40 mg/dL Total Bilirubin 2.0 H 0.2-1.0 mg/dL Aspartate Amino Transf (AST/SGOT) 253 H 10-37 U/L Alanine Aminotransferase (ALT/SGPT) 451 #H 12-78 U/L Alkaline Phosphatase 119 50-136 U/L Total Protein 6.5 # 6.0-8.3 g/dL Albumin 3.1 #L 3.5-5.0 g/dL Triglycerides Level 55 30-200 mg/dL Cholesterol Level 142 <200 mg/dL LDL Cholesterol 75 0-99 mg/dL HDL Cholesterol 50 35-85 mg/dL Direct Bilirubin 1.6 H 0.0-0.3 mg/dL Troponin I High Sensitivity < 4 L 4-50 ng/L Lipase 64 16-77 U/L Urine Color DARK-YELLOW YELLOW Urine Appearance CLEAR CLEAR Urine pH 6.5 5.0-8.0 Urine Specific [place] 1.032 H 1.001-1.031 Urine Protein 20 H NEGATIVE mg/dL Urine Glucose (UA) NEGATIVE NEGATIVE mg/dL Urine Ketones NEGATIVE NEGATIVE mg/dL Urine Occult Blood NEGATIVE NEGATIVE Urine Nitrate NEGATIVE NEGATIVE Urine Bilirubin 2 H NEGATIVE mg/dL Urine Urobilinogen 4.0 H 0.2-1.0 mg/dL Urine Leukocyte Esterase 25 H NEGATIVE Marcia/uL Urine RBC 2-5 H 0-1 /HPF Urine WBC 0-1 0-1 /HPF Urine Squamous Epithelial Cells MANY 0-2 /HPF Urine Bacteria None None Seen /HPF Urine HCG, Qualitative NEGATIVE NEGATIVE Current Medications Medications (Trade) Dose Ordered Sig/Jo Ann Route PRN Reason Start Time Stop Time Status Last Admin Dose Admin Famotidine (Pepcid 20mg Vial) 20 mg BID IV 12/23/24 21:00 01/22/25 20:59 12/24/24 08:47 20 MG Ketorolac Tromethamine (toRADol) 15 mg Q6H PRN IV MODERATE PAIN (4-6) 12/23/24 21:00 12/28/24 20:59 12/24/24 01:23 15 MG Magnesium Sulfate 50 ml @ 0 mls/hr PROTOCOL PRN IV OTHER [SEE ORDER COMMENTS] 12/23/24 20:00 01/22/25 19:59 12/24/24 08:52 20 MLS/HR Ondansetron HCl (zoFRAN 4MG INJ) 4 mg Q6H PRN IV NAUSEA/VOMITING 12/23/24 20:00 01/22/25 19:59 Piperacillin Sod/ Tazobactam Sod (Zosyn 3.375gm+NS 50ml) 3.375 gm Q8H IV 12/24/24 04:00 01/03/25 03:59 12/24/24 12:17 3.375 GM Potassium Chloride 100 ml @ 50 mls/hr AD PRN IV POTASSIUM PROTOCOL 12/23/24 20:00 01/22/25 19:59 Potassium Chloride 100 ml @ 100 mls/hr AD PRN IV POTASSIUM PROTOCOL 12/23/24 20:00 12/23/24 20:17 DC Potassium Chloride (K-Dur/Klor-Con 20meq) 20 meq AD PRN PO POTASSIUM PROTOCOL 12/23/24 20:00 01/22/25 19:59 Potassium Chloride (KCl 10% Elixir 20meq/15ml) 20 meq AD PRN PO POTASSIUM PROTOCOL 12/23/24 20:00 01/22/25 19:59 Sodium Chloride 1,000 ml @ 100 mls/hr Q10H IV 12/23/24 20:00 01/22/25 19:59 12/23/24 20:19 100 MLS/HR DIAGNOSTICS / RADIOLOGY: [ ] ASSESSMENT: Suspected Choledocholithiasis POA Right upper quadrant abdominal pain POA Transaminitis POA Suspected urinary tract infection POA Hypokalemia POA Nicotine dependence POA History of gallstones POA PLAN: Patient was evaluated by the surgeon and at this moment they recommending MRCP. If MRCP we will be negative patient will be scheduled for cholecystectomy during this hospitalization. NPO for procedure. GI consulted for ERCP. Urinalysis positive for leukocytosis. Final urine culture still pending. Patient continues to be on Zosyn. We will continue to monitor patient in the meantime. A.m. labs. We will start famotidine 20 mg IV b.i.d. for GI prophylaxis will replace electrolytes as needed per protocol We will add prn medication for fever,pain,cough , nausea and vomiting Counseled on smoking cessation We will request labs in am Further orders to follow depending on above results Case discussed with attending physician and came up with above treatment and plan of care. ATTESTATION BY PHYSICIAN I have seen and examined the patient. I reviewed the documentation, medical decision making, and treatment plan as noted by the mid-level provider above. I agree with the findings and plan of care. Alex Canales IV, MD, KATARZYNA B [employer]TER WAITER Dec 24, 2024 13:25
[2024-12-24] MEDS: PoTASSium chloRIDE 20MEQ ER 20 MEQ ERTAB PO ONE (13:30)
--- NOTE | 2024-12-24 16:17 | NUR ---
INITIAL/DCP HOME Met w pt this afternoon to discuss dcp. Pt mentions that she lives at home w her mom and 2children. She is independent w ambulation and ADLs. 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 Pt does not own any DME or receive services. [facility] preferred [facility]. Discharge goal is to return home. Addendum: 12/24/24 at 1619 by LUISA LAMB CM Amended: Links added.
--- NOTE | 2024-12-24 18:47 | HMCIMG ---
EXAM: MRCP Abdomen without Intravenous Contrast. CLINICAL HISTORY: Suspected choledocholithiasis. TECHNIQUE: Multisequence, multiplanar magnetic resonance images of the abdomen. CONTRAST: None. COMPARISON: Sonogram dated 12/23/24. FINDINGS: MRCP: No intrahepatic biliary ductal dilation is present. Multiple 2 to 3mm size gallbladder calculi are seen. Mild gallbladder wall edema noted. The cystic duct and right and left hepatic ducts are unremarkable. Multiple 2 to 3mm size calculi noted in the mid common bile duct. Normal pancreatic duct. No biliary strictures are present. No choledocholithiasis. There is no gross abnormality appreciated within the visualized liver, pancreas, spleen, adrenals, or kidneys. IMPRESSIONS: Acute calculus cholecystitis and choledocholithiasis. /[place]
[2024-12-24] MEDS ORDERED: MAGNESIUM 2GM PREMIX 50ML 50 ML IV SCH (21:00)
[2024-12-25] VITALS (22 sets, daily range): BP systolic 91–131; BP diastolic 49–74; PULSE 46–71; RESP 15–20; TEMP 97.3–98.3; O2SAT 97–99
[2024-12-25 05:48] LABS: IMMATURE GRANULOCYTE ABSOLUTE 0.01 K/uL (0-1); NUCLEATED RED BLOOD CELLS 0.0 % (0.0-0.19); PLATELET COUNT (AUTO) 220 K/uL (130-400); RED BLOOD CELL COUNT(AUTO) 3.69 MIL/uL (4.00-5.50); RED CELL DISTRIBUTION WIDTH 14.5 % (11.0-15.5); WHITE BLOOD COUNT (AUTO) 4.5 K/uL (4.8-10.8)
[2024-12-25 06:12] LABS: ASPARTATE AMINOTRANSFERASE 90.0 U/L (10-37); CREATININE 0.6 mg/dL (0.5-1.0); GLOMERULAR FILTR. RATE CALC 128.0 mL/min (>90); GLUCOSE,RANDOM 79.0 mg/dL (70-105); SODIUM SERUM 141.0 mmol/L (136-145); TOTAL PROTEIN, SERUM 6.1 g/dL (6.0-8.3); UREA NITROGEN, BLOOD 11.0 mg/dL (7-18)
[2024-12-25] MEDS ORDERED: IOHEXOL-350 50ML VIAL IV ONE (08:55)
[2024-12-25] MEDS ORDERED: GLYCOPYRROLATE 0.2 MG/ML 5 ML VIAL ONE (09:55)
[2024-12-25] MEDS ORDERED: NEOSTIGMINE METHYLSULFATE 1MG/ML IV ONE (09:55)
[2024-12-25] MEDS ORDERED: LIDOCAINE PF 100MG/5ML (2%) SYRINGE 5ML ONE (09:58)
[2024-12-25] MEDS ORDERED: SUCCINYLCHOLINE CHLORIDE 20 MG/ML 10 ML VIAL ONE (10:02)
[2024-12-25] MEDS: SUGAMMADEX SODIUM 200 MG/2 ML VIAL IV ONE (11:50)
--- NOTE | 2024-12-25 11:53 | PN ---
[facility] PROGRESS NOTE Date of Service: Dec 25, 2024 Time of Service: 11:[address] Stewart SUBJECTIVE: [ 12/23 This is a 24-year-old female with past medical history of gallstone who presents to the ED for complaints of right upper quadrant pain which travels towards her right chest associated with nausea and vomiting started last Wednesday.Patient states she had pizza last and following day after waking up she started having abdominal pain around right upper quadrant and pain intensity has gradually intensified today and she became nauseated and had 1 episode of nonbloody vomiting associated with chills so she decided to come to the ED for evaluation.Patient reports every time she eats pizza this happened to her,last time a month ago she had similar problem after she had pizza she started having pain and she was told a month ago at the urgent care she has gallstones.Patient reports her last bowel movement was 1 week ago. Patient reports,she always have spicy food in her daily meal. Seen and examined patient in the ER awaker,alert and coherent,appears comfortable.Patient reports she just had pain medication she said.Patient denies chest pain,palpitation shortness of breath and diarrhea. Latest vital signs temperature 98.4, heart rate 70, blood pressure 106/76 saturation 98% on room air. Labs: Hemoglobin 12, hematocrit 38, platelet count 297. Potassium 3.4, total bilirubin 2.1, direct bilirubin 1.6, AST 558 ALT 681 alkaline phosphatase 147 troponin less than four. Urinalysis significant for protein, urine bilirubin two, urine urobilinogen four leuko esterase 25 urine RBC 2-5 urine hCG negative. Abdominal ultrasound result revealed multiple gallbladder calculi. Chest x-ray result is unremarkable. While in the ER patient received 1 L NS bolus, morphine 4 mg IV, Zofran 4 mg IV Protonix 40 mg IV and Zosyn IV. We will admit patient for further medical management. 12/24 patient was seen by CHORE WORKER and physician during rounding in room 313. Patient was evaluated by the surgeon and at this moment they recommending MRCP. If MRCP we will be negative patient will be scheduled for cholecystectomy during this hospitalization. NPO for procedure. GI consulted for ERCP. Urinalysis positive for leukocytosis. Final urine culture still pending. Patient continues to be on Zosyn. We will continue to monitor patient in the meantime. A.m. labs. 12/25 patient was seen by nurse practitioner and physician during rounding. Patient is s/p MRCP which showed acute calculous cholecystitis and choledocholithiasis. Patient is pending ERCP today afternoon. Surgery on standby. Patient will receive 40 mEq of potassium for potassium of 3.6. Liver function test has improved compared to the previous day. We will continue to monitor patient in the meantime. A.m. labs.] REVIEW OF SYSTEMS CONSTITUTIONAL: Denies any chills Denies fevers night sweats. No unintentional weight loss reported. NEUROLOGICAL: Denies headache, amaurosis fugax, motor weakness, sensory def icit, vertigo/spinning sensation, gait abnormalities, or tremors. ENT: No hearing loss, otalgia, otorrhea, rhinitis, rhinorrhea, hoarseness, or sore throat. CARDIOVASCULAR: Denies any exertional angina, dyspnea on exertion, orthopnea, paroxysmal nocturnal dyspnea, palpitations, life-threatening arrhythmias, claudication. PULMONARY: Denies any shortness of breath, cough, phlegm/sputum, hemoptysis, pleuritic chest pain. SLEEP: Denies morning headaches, daytime somnolence or napping. Denies difficulty falling asleep, staying asleep, waking from sleep. Denies knowledge of snoring. GASTROINTESTINAL: Complaints of right upper quadrant pain associated nausea , vomiting and constipation Denies any type of dysphagia to either liquids or solids. Denies pyrosis, early satiety, diarrhea or changes in stool consistency or caliber. Denies coffee-ground emesis, hematemesis, hematochezia, or melanotic stools. GENITOURINARY: Denies frequency, urgency, nocturia, hematuria or incontinence (Storage/Irritative symptoms.) Low urinary stream, straining to void, urinary intermittency or hesitancy, splitting of the voiding stream, terminal dribbling. ENDOCRINOLOGIC: Denies polyuria, polydipsia, polyphagia or heat/cold intolerances. HEMATOLOGIC: Denies thrombophilia/previous clots, or coagulopathy/bleeding disorders. ONCOLOGIC: Denies personal history of malignancy. DERMATOLOGIC: Denies rashes or pruritus. PSYCHIATRIC: Denies any suicidal or homicidal ideation. Denies hallucinations. PHYSICAL EXAM GENERAL APPEARANCE: The patient is awake, alert, and oriented, in no acute cardiopulmonary distress. NEUROLOGICAL: Cranial nerves II-XII grossly intact. Motor is 5/5 in bilateral upper and lower extremities proximal to distal. No sensory deficits. HEENT: Face is symmetric. Pupils are equal and reactive. Extraocular movements are intact. NECK: Supple. No JVD. No thyromegaly. No submental, submandibular, pre- /postauricular, occipital or supraclavicular lymphadenopathy. CHEST: Normal chest expansion. No Telemetry. LUNGS: Absence of any rales, rhonchi or any wheezing. CARDIOVASCULAR: Regular. S1 and S2 normal. No appreciable rubs, murmurs or gallops. ABDOMEN: Soft and nondistended. There is no rebound, voluntary guarding, or rigidity. : Deferred. No [place]. EXTREMITIES: Non-edematous and not cyanotic. No clubbing. Good capillary refill. SKIN: No skin breakdown. Vital Signs (last 8hr) Date Time Temp Pulse Resp B/P (MAP) Pulse Ox O2 Delivery O2 Flow Rate FiO2 12/25/24 08:00 97.9 55 19 117/69 97 Room Air 12/25/24 07:44 97 Room Air* 0 21 12/25/24 04:10 98.2 52 18 102/59 95 Room Air LABS: Laboratory: Test 12/25/24 05:22 12/24/24 04:35 12/23/24 17:06 12/23/24 13:46 Range/Units White Blood Count 4.5 L 4.8-10.8 K/uL Red Blood Count 3.69 L 4.00-5.50 MIL/uL Hemoglobin 9.6 L 12.0-16.0 g/dL Hematocrit 29.8 L 36-48 % Mean Corpuscular Volume 80.8 79-99 fL Mean Corpuscular Hemoglobin 26.0 L 27.0-33.0 pg Mean Corpuscular Hemoglobin Concent 32.2 32.0-36.0 g/dL Red Cell Distribution Width 14.5 11.0-15.5 % Platelet Count 220 130-400 K/uL Mean Platelet Volume 11.3 H 7.5-10.5 fL Immature Granulocyte % (Auto) 0.2 0-1 % Neutrophils (%) (Auto) 44.4 40.0-77.0 % Lymphocytes (%) (Auto) 45.3 21.0-51.0 % Monocytes (%) (Auto) 7.2 3.0-13.0 % Eosinophils (%) (Auto) 2.2 0.0-8.0 % Basophils (%) (Auto) 0.7 0.0-5.0 % Neutrophils # (Auto) 2.0 1.8-7.7 K/uL Lymphocytes # (Auto) 2.0 1.0-4.8 K/uL Monocytes # (Auto) 0.3 0.1-1.0 K/uL Eosinophils # (Auto) 0.10 0.00-0.70 K/uL Basophils # (Auto) 0.03 0.00-0.20 K/uL Absolute Immature Granulocyte (auto 0.01 0-1 K/uL Nucleated Red Blood Cells 0.0 0.0-0.19 % Sodium Level 141 136-145 mmol/L Potassium Level 3.6 3.5-5.1 mmol/L Chloride Level 107 101-111 mmol/L Carbon Dioxide Level 27 21-32 mmol/L Blood Urea Nitrogen 11 7-18 mg/dL Creatinine 0.6 0.5-1.0 mg/dL Glomerular Filtration Rate Calc 128 >90 mL/min Random Glucose 79 70-105 mg/dL Total Calcium 8.2 L 8.5-10.1 mg/dL Magnesium Level 2.10 1.80-2.40 mg/dL Total Bilirubin 1.6 H 0.2-1.0 mg/dL Direct Bilirubin 0.8 H 0.0-0.3 mg/dL Aspartate Amino Transf (AST/SGOT) 90 H 10-37 U/L Alanine Aminotransferase (ALT/SGPT) 288 H 12-78 U/L Alkaline Phosphatase 112 50-136 U/L Total Protein 6.1 6.0-8.3 g/dL Albumin 2.9 L 3.5-5.0 g/dL Amylase Level 48 25-115 U/L Lipase 32 16-77 U/L Procalcitonin < 0.05 L 0.05-0.5 ng/mL Triglycerides Level 55 30-200 mg/dL Cholesterol Level 142 <200 mg/dL LDL Cholesterol 75 0-99 mg/dL HDL Cholesterol 50 35-85 mg/dL Troponin I High Sensitivity < 4 L 4-50 ng/L Urine Color DARK-YELLOW YELLOW Urine Appearance CLEAR CLEAR Urine pH 6.5 5.0-8.0 Urine Specific [place] 1.032 H 1.001-1.031 Urine Protein 20 H NEGATIVE mg/dL Urine Glucose (UA) NEGATIVE NEGATIVE mg/dL Urine Ketones NEGATIVE NEGATIVE mg/dL Urine Occult Blood NEGATIVE NEGATIVE Urine Nitrate NEGATIVE NEGATIVE Urine Bilirubin 2 H NEGATIVE mg/dL Urine Urobilinogen 4.0 H 0.2-1.0 mg/dL Urine Leukocyte Esterase 25 H NEGATIVE Marcia/uL Urine RBC 2-5 H 0-1 /HPF Urine WBC 0-1 0-1 /HPF Urine Squamous Epithelial Cells MANY 0-2 /HPF Urine Bacteria None None Seen /HPF Urine HCG, Qualitative NEGATIVE NEGATIVE Current Medications Medications (Trade) Dose Ordered Sig/Jo Ann Route PRN Reason Start Time Stop Time Status Last Admin Dose Admin Famotidine (Pepcid 20mg Vial) 20 mg BID IV 12/23/24 21:00 01/22/25 20:59 12/25/24 07:44 20 MG Ketorolac Tromethamine (toRADol) 15 mg Q6H PRN IV MODERATE PAIN (4-6) 12/23/24 21:00 12/28/24 20:59 12/24/24 21:04 15 MG Magnesium Sulfate 50 ml @ 0 mls/hr PROTOCOL IV 12/24/24 21:00 12/24/24 13:20 DC Magnesium Sulfate 50 ml @ 0 mls/hr PROTOCOL PRN IV OTHER [SEE ORDER COMMENTS] 12/23/24 20:00 01/22/25 19:59 12/24/24 08:52 20 MLS/HR Ondansetron HCl (zoFRAN 4MG INJ) 4 mg Q6H PRN IV NAUSEA/VOMITING 12/23/24 20:00 01/22/25 19:59 12/24/24 21:01 4 MG Piperacillin Sod/ Tazobactam Sod (Zosyn 3.375gm+NS 50ml) 3.375 gm Q8H IV 12/24/24 04:00 01/03/25 03:59 12/25/24 04:27 3.375 GM Potassium Chloride 100 ml @ 50 mls/hr AD PRN IV POTASSIUM PROTOCOL 12/23/24 20:00 01/22/25 19:59 Potassium Chloride 100 ml @ 100 mls/hr AD PRN IV POTASSIUM PROTOCOL 12/23/24 20:00 12/23/24 20:17 DC Potassium Chloride (K-Dur/Klor-Con 20meq) 20 meq AD PRN PO POTASSIUM PROTOCOL 12/23/24 20:00 01/22/25 19:59 Potassium Chloride (KCl 10% Elixir 20meq/15ml) 20 meq AD PRN PO POTASSIUM PROTOCOL 12/23/24 20:00 01/22/25 19:59 Sodium Chloride 1,000 ml @ 100 mls/hr Q10H IV 12/23/24 20:00 01/22/25 19:59 12/23/24 20:19 100 MLS/HR DIAGNOSTICS / RADIOLOGY: [ ] ASSESSMENT: Suspected Choledocholithiasis POA Right upper quadrant abdominal pain POA Acute calculous cholecystitis as per MRCP Transaminitis POA Suspected urinary tract infection POA Hypokalemia POA Nicotine dependence POA History of gallstones POA PLAN: Patient is s/p MRCP which showed acute calculous cholecystitis and choledocholithiasis. Patient is pending ERCP today afternoon. Surgery on standby. Patient will receive 40 mEq of potassium for potassium of 3.6. Liver function test has improved compared to the previous day. We will continue to monitor patient in the meantime. A.m. labs. We will start famotidine 20 mg IV b.i.d. for GI prophylaxis will replace electrolytes as needed per protocol We will add prn medication for fever,pain,cough , nausea and vomiting Counseled on smoking cessation Further orders to follow depending on above results Case discussed with attending physician and came up with above treatment and plan of care. ATTESTATION BY PHYSICIAN I have seen and examined the patient. I reviewed the documentation, medical decision making, and treatment plan as noted by the mid-level provider above. I agree with the findings and plan of care. JOSE L STEWART MD, [facility] [employer] Dec 25, 2024 11:53
[2024-12-25] MEDS: PoTASSium chloRIDE 20MEQ ER 20 MEQ ERTAB PO ONE ×2 (12:00→17:05)
[2024-12-25] MEDS: INDOMETHACIN 100 MG SUPP.RECT RC ONE (13:28)
--- NOTE | 2024-12-25 16:16 | PN ---
This is a 24-year-old female with concerns of choledocholithiasis with recent ERCP Interval history: This 24-year-old female seen with status post ERCP Patient's pain controlled Patient is still NPO No other acute events reported at this time Physical exam General: Awake alert and oriented Heart: Regular rate and rhythm} Lungs: Clear to auscultation no distress Abdomen: [Soft, nontender, nondistended Assessment : This is a 24-year-old female with choledocholithiasis on recent ERCP Plan: At this point in time patient will be scheduled for robotic cholecystectomy tomorrow with Dr. Brock Knutson Patient to be made NPO at midnight Repeat CBC CMP and lipase tomorrow Dr Knutson to be updated in patient's status and surgical team to follow patient closely Surgical case has been discussed with my supervising physician in the above plan was formulated and agreed upon We appreciate the hospitalist team for us to participate in patient's care. Greater than 45 minutes of time spent patient, reviewing chart, working on documentation Vitals/Labs Vital Signs Date Time Temp Pulse Resp B/P (MAP) Pulse Ox O2 Delivery O2 Flow Rate FiO2 12/25/24 14:15 47 106/65 96 Room Air 12/25/24 12:45 98.1 18 12/25/24 12:45 21 12/25/24 12:00 10.0 Laboratory Tests 12/25/24 05:22 Medications Current Medications Sodium Chloride 1,000 ml @ 0 mls/hr ONCE ONCE IV Last administered on 12/23/24at 17:16; Start 12/23/24 at 17:00; Stop 12/23/24 at 17:01; Status DC Morphine Sulfate 4 mg ONCE ONCE IVP Last administered on 12/23/24at 17:16; Start 12/23/24 at 17:00; Stop 12/23/24 at 17:01; Status DC Ondansetron HCl 4 mg ONCE ONCE IVP Last administered on 12/23/24at 17:16; Start 12/23/24 at 17:00; Stop 12/23/24 at 17:01; Status DC Pantoprazole Sodium 40 mg ONCE ONCE IVP Last administered on 12/23/24at 17:16; Start 12/23/24 at 17:00; Stop 12/23/24 at 17:01; Status DC Piperacillin Sod/ Tazobactam Sod 3.375 gm ONCE ONCE IV Last administered on 12/23/24at 20:19; Start 12/23/24 at 20:00; Stop 12/23/24 at 20:01; Status DC Ondansetron HCl 4 mg Q6H PRN IV Last administered on 12/24/24at 21:01; Start 12/23/24 at 20:00; Stop 01/22/25 at 19:59 Sodium Chloride 1,000 ml @ 100 mls/hr Q10H IV Last administered on 12/23/24at 20:19; Start 12/23/24 at 20:00; Stop 01/22/25 at 19:59 Famotidine 20 mg BID IV Last administered on 12/25/24at 07:44; Start 12/23/24 at 21:00; Stop 01/22/25 at 20:59 Magnesium Sulfate 50 ml @ 0 mls/hr PROTOCOL PRN IV Last administered on 12/24/24at 08:52; Start 12/23/24 at 20:00; Stop 01/22/25 at 19:59 Potassium Chloride 100 ml @ 50 mls/hr AD PRN IV; Start 12/23/24 at 20:00; Stop 01/22/25 at 19:59 Potassium Chloride 100 ml @ 100 mls/hr AD PRN IV; Start 12/23/24 at 20:00; Stop 12/23/24 at 20:17; Status DC Potassium Chloride 20 meq AD PRN PO; Start 12/23/24 at 20:00; Stop 01/22/25 at 19:59 Potassium Chloride 20 meq AD PRN PO; Start 12/23/24 at 20:00; Stop 01/22/25 at 19:59 Piperacillin Sod/ Tazobactam Sod 3.375 gm Q8H IV Last administered on 12/25/24at 15:41; Start 12/24/24 at 04:00; Stop 01/03/25 at 03:59 Ketorolac Tromethamine 15 mg Q6H PRN IV Last administered on 12/24/24at 21:04; Start 12/23/24 at 21:00; Stop 12/28/24 at 20:59 Morphine Sulfate 2 mg ONCE ONCE IVP Last administered on 12/24/24at 05:17; Start 12/24/24 at 05:00; Stop 12/24/24 at 05:01; Status DC Potassium Chloride 40 meq ONCE ONCE PO; Start 12/24/24 at 13:30; Stop 12/24/24 at 13:31; Status DC Magnesium Sulfate 50 ml @ 0 mls/hr PROTOCOL IV; Start 12/24/24 at 21:00; Stop 12/24/24 at 13:20; Status DC Indomethacin 100 mg ONCE ONCE RC Last administered on 12/25/24at 13:28; Start 12/25/24 at 09:00; Stop 12/25/24 at 09:01; Status DC Iohexol 50 ml STK-MED ONCE IV; Start 12/25/24 at 08:55; Stop 12/25/24 at 08:55; Status DC Rocuronium [place] 50 mg STK-MED ONCE .ROUTE; Start 12/25/24 at 09:55; Stop 12/25/24 at 09:55; Status DC Glycopyrrolate 1 mg STK-MED ONCE .ROUTE; Start 12/25/24 at 09:55; Stop 12/25/24 at 09:55; Status DC Neostigmine Methylsulfate 10 mg STK-MED ONCE IV; Start 12/25/24 at 09:55; Stop 12/25/24 at 09:55; Status DC Fentanyl Citrate 100 mcg STK-MED ONCE .ROUTE; Start 12/25/24 at 09:56; Stop 12/25/24 at 09:56; Status DC Propofol 200 mg STK-MED ONCE IV; Start 12/25/24 at 09:56; Stop 12/25/24 at 09:56; Status DC Lidocaine HCl 100 mg STK-MED ONCE .ROUTE; Start 12/25/24 at 09:58; Stop 12/25/24 at 09:58; Status DC Succinylcholine Chloride 200 mg STK-MED ONCE .ROUTE; Start 12/25/24 at 10:02; Stop 12/25/24 at 10:02; Status DC Ondansetron HCl 4 mg STK-MED ONCE .ROUTE; Start 12/25/24 at 10:02; Stop 12/25/24 at 10:02; Status DC Dexamethasone Sodium Phosphate 10 mg STK-MED ONCE .ROUTE; Start 12/25/24 at 10:02; Stop 12/25/24 at 10:03; Status DC Potassium Chloride 40 meq ONCE ONCE PO; Start 12/25/24 at 12:00; Stop 12/25/24 at 12:01; Status DC PILLO MOCK Jr. SHERRY Dec 25, 2024 16:16
[2024-12-26] VITALS (23 sets, daily range): BP systolic 94–126; BP diastolic 59–82; PULSE 47–82; RESP 15–20; TEMP 97.6–98.4; O2SAT 97–99
[2024-12-26 05:41] LABS: IMMATURE GRANULOCYTE ABSOLUTE 0.03 K/uL (0-1); NUCLEATED RED BLOOD CELLS 0.0 % (0.0-0.19); PLATELET COUNT (AUTO) 250 K/uL (130-400); RED BLOOD CELL COUNT(AUTO) 3.98 MIL/uL (4.00-5.50); RED CELL DISTRIBUTION WIDTH 14.0 % (11.0-15.5); WHITE BLOOD COUNT (AUTO) 10.4 K/uL (4.8-10.8)
[2024-12-26 06:06] LABS: ASPARTATE AMINOTRANSFERASE 50.0 U/L (10-37); CREATININE 0.5 mg/dL (0.5-1.0); GLOMERULAR FILTR. RATE CALC 133.0 mL/min (>90); GLUCOSE,RANDOM 96.0 mg/dL (70-105); SODIUM SERUM 139.0 mmol/L (136-145); TOTAL PROTEIN, SERUM 6.8 g/dL (6.0-8.3); UREA NITROGEN, BLOOD 11.0 mg/dL (7-18)
--- NOTE | 2024-12-26 11:07 | PN ---
[facility] PROGRESS NOTE Date of Service: Dec 26, 2024 Time of Service: 11:04 SUBJECTIVE: [ 12/23 This is a 24-year-old female with past medical history of gallstone who presents to the ED for complaints of right upper quadrant pain which travels towards her right chest associated with nausea and vomiting started last Wednesday.Patient states she had pizza last and following day after waking up she started having abdominal pain around right upper quadrant and pain intensity has gradually intensified today and she became nauseated and had 1 episode of nonbloody vomiting associated with chills so she decided to come to the ED for evaluation.Patient reports every time she eats pizza this happened to her,last time a month ago she had similar problem after she had pizza she started having pain and she was told a month ago at the urgent care she has gallstones.Patient reports her last bowel movement was 1 week ago. Patient reports,she always have spicy food in her daily meal. Seen and examined patient in the ER awaker,alert and coherent,appears comfortable.Patient reports she just had pain medication she said.Patient denies chest pain,palpitation shortness of breath and diarrhea. Latest vital signs temperature 98.4, heart rate 70, blood pressure 106/76 saturation 98% on room air. Labs: Hemoglobin 12, hematocrit 38, platelet count 297. Potassium 3.4, total bilirubin 2.1, direct bilirubin 1.6, AST 558 ALT 681 alkaline phosphatase 147 troponin less than four. Urinalysis significant for protein, urine bilirubin two, urine urobilinogen four leuko esterase 25 urine RBC 2-5 urine hCG negative. Abdominal ultrasound result revealed multiple gallbladder calculi. Chest x-ray result is unremarkable. While in the ER patient received 1 L NS bolus, morphine 4 mg IV, Zofran 4 mg IV Protonix 40 mg IV and Zosyn IV. We will admit patient for further medical management. 12/24 patient was seen by UNARMED SECURITY OFFICER and physician during rounding in room 313. Patient was evaluated by the surgeon and at this moment they recommending MRCP. If MRCP we will be negative patient will be scheduled for cholecystectomy during this hospitalization. NPO for procedure. GI consulted for ERCP. Urinalysis positive for leukocytosis. Final urine culture still pending. Patient continues to be on Zosyn. We will continue to monitor patient in the meantime. A.m. labs. 12/25 patient was seen by nurse practitioner and physician during rounding. Patient is s/p MRCP which showed acute calculous cholecystitis and choledocholithiasis. Patient is pending ERCP today afternoon. Surgery on standby. Patient will receive 40 mEq of potassium for potassium of 3.6. Liver function test has improved compared to the previous day. We will continue to monitor patient in the meantime. A.m. labs.] 12/26/24 patient is scheduled for lap cecilio. Encouraged patient early ambulation postprocedure. Deep breathing exercise. Patient denied chest pain or shortness for breath REVIEW OF SYSTEMS CONSTITUTIONAL: Denies any chills Denies fevers night sweats. No unintentional weight loss reported. NEUROLOGICAL: Denies headache, amaurosis fugax, motor weakness, sensory deficit, vertigo/spinning sensation, gait abnormalities, or tremors. ENT: No hearing loss, otalgia, otorrhea, rhinitis, rhinorrhea, hoarseness, or sore throat. CARDIOVASCULAR: Denies any exertional angina, dyspnea on exertion, orthopnea, paroxysmal nocturnal dyspnea, palpitations, life-threatening arrhythmias, claudication. PULMONARY: Denies any shortness of breath, cough, phlegm/sputum, hemoptysis, pleuritic chest pain. SLEEP: Denies morning headaches, daytime somnolence or napping. Denies difficulty falling asleep, staying asleep, waking from sleep. Denies knowledge of snoring. GASTROINTESTINAL: Complaints of right upper quadrant pain associated nausea , vomiting and constipation Denies any type of dysphagia to either liquids or solids. Denies pyrosis, early satiety, diarrhea or changes in stool consistency or caliber. Denies coffee-ground emesis, hematemesis, hematochezia, or melanotic stools. GENITOURINARY: Denies frequency, urgency, nocturia, hematuria or incontinence (Storage/Irritative symptoms.) Low urinary stream, straining to void, urinary intermittency or hesitancy, splitting of the voiding stream, terminal dribbling. ENDOCRINOLOGIC: Denies polyuria, polydipsia, polyphagia or heat/cold intolerances. HEMATOLOGIC: Denies thrombophilia/previous clots, or coagulopathy/bleeding disorders. ONCOLOGIC: Denies personal history of malignancy. DERMATOLOGIC: Denies rashes or pruritus. PSYCHIATRIC: Denies any suicidal or homicidal ideation. Denies hallucinations. PHYSICAL EXAM GENERAL APPEARANCE: The patient is awake, alert, and oriented, in no acute cardiopulmonary distress. NEUROLOGICAL: Cranial nerves II-XII grossly intact. Motor is 5/5 in bilateral upper and lower extremities proximal to distal. No sensory deficits. HEENT: Face is symmetric. Pupils are equal and reactive. Extraocular movements are intact. NECK: Supple. No JVD. No thyromegaly. No submental, submandibular, pre- /postauricular, occipital or supraclavicular lymphadenopathy. CHEST: Normal chest expansion. No Telemetry. LUNGS: Absence of any rales, rhonchi or any wheezing. CARDIOVASCULAR: Regular. S1 and S2 normal. No appreciable rubs, murmurs or gallops. ABDOMEN: Soft and nondistended. There is no rebound, voluntary guarding, or rigidity. : Deferred. No Chowdary. EXTREMITIES: Non-edematous and not cyanotic. No clubbing. Good capillary refill. SKIN: No skin breakdown. Vital Signs (last 8hr) Date Time Temp Pulse Resp B/P (MAP) Pulse Ox O2 Delivery O2 Flow Rate FiO2 12/26/24 08:02 97 Room Air* 0 21 12/26/24 08:00 98.1 60 20 96/63 97 Room Air 12/26/24 03:40 97.5 47 20 102/64 97 Room Air LABS: Laboratory: Test 12/26/24 05:22 12/25/24 05:22 Range/Units White Blood Count 10.4 # 4.8-10.8 K/uL Red Blood Count 3.98 L 4.00-5.50 MIL/uL Hemoglobin 10.5 L 12.0-16.0 g/dL Hematocrit 31.6 L 36-48 % Mean Corpuscular Volume 79.4 79-99 fL Mean Corpuscular Hemoglobin 26.4 L 27.0-33.0 pg Mean Corpuscular Hemoglobin Concent 33.2 32.0-36.0 g/dL Red Cell Distribution Width 14.0 11.0-15.5 % Platelet Count 250 130-400 K/uL Mean Platelet Volume 11.5 H 7.5-10.5 fL Immature Granulocyte % (Auto) 0.3 0-1 % Neutrophils (%) (Auto) 74.9 40.0-77.0 % Lymphocytes (%) (Auto) 18.3 L 21.0-51.0 % Monocytes (%) (Auto) 6.2 3.0-13.0 % Eosinophils (%) (Auto) 0.0 0.0-8.0 % Basophils (%) (Auto) 0.3 0.0-5.0 % Neutrophils # (Auto) 7.8 H 1.8-7.7 K/uL Lymphocytes # (Auto) 1.9 1.0-4.8 K/uL Monocytes # (Auto) 0.6 0.1-1.0 K/uL Eosinophils # (Auto) 0.00 0.00-0.70 K/uL Basophils # (Auto) 0.03 0.00-0.20 K/uL Absolute Immature Granulocyte (auto 0.03 0-1 K/uL Nucleated Red Blood Cells 0.0 0.0-0.19 % Sodium Level 139 136-145 mmol/L Potassium Level 3.9 3.5-5.1 mmol/L Chloride Level 106 101-111 mmol/L Carbon Dioxide Level 24 21-32 mmol/L Blood Urea Nitrogen 11 7-18 mg/dL Creatinine 0.5 0.5-1.0 mg/dL Glomerular Filtration Rate Calc 133 >90 mL/min Random Glucose 96 70-105 mg/dL Total Calcium 8.8 8.5-10.1 mg/dL Magnesium Level 1.80 1.80-2.40 mg/dL Total Bilirubin 1.4 H 0.2-1.0 mg/dL Direct Bilirubin 0.7 H 0.0-0.3 mg/dL Aspartate Amino Transf (AST/SGOT) 50 H 10-37 U/L Alanine Aminotransferase (ALT/SGPT) 232 H 12-78 U/L Alkaline Phosphatase 119 50-136 U/L B-Type Natriuretic Peptide 214 H 0-100 pg/mL Total Protein 6.8 6.0-8.3 g/dL Albumin 3.3 L 3.5-5.0 g/dL Amylase Level 48 25-115 U/L Lipase 32 16-77 U/L Procalcitonin < 0.05 L 0.05-0.5 ng/mL Current Medications Medications (Trade) Dose Ordered Sig/Jo Ann Route PRN Reason Start Time Stop Time Status Last Admin Dose Admin Famotidine (Pepcid 20mg Vial) 20 mg BID IV 12/23/24 21:00 01/22/25 20:59 12/26/24 08:02 20 MG Ketorolac Tromethamine (toRADol) 15 mg Q6H PRN IV MODERATE PAIN (4-6) 12/23/24 21:00 12/28/24 20:59 12/26/24 08:08 15 MG Magnesium Sulfate 50 ml @ 0 mls/hr PROTOCOL IV 12/24/24 21:00 12/24/24 13:20 DC Magnesium Sulfate 50 ml @ 0 mls/hr PROTOCOL PRN IV OTHER [SEE ORDER COMMENTS] 12/23/24 20:00 01/22/25 19:59 12/26/24 08:03 25 MLS/HR Ondansetron HCl (zoFRAN 4MG INJ) 4 mg Q6H PRN IV NAUSEA/VOMITING 12/23/24 20:00 01/22/25 19:59 12/24/24 21:01 4 MG Piperacillin Sod/ Tazobactam Sod (Zosyn 3.375gm+NS 50ml) 3.375 gm Q8H IV 12/24/24 04:00 01/03/25 03:59 12/26/24 03:50 3.375 GM Potassium Chloride 100 ml @ 50 mls/hr AD PRN IV POTASSIUM PROTOCOL 12/23/24 20:00 01/22/25 19:59 Potassium Chloride 100 ml @ 100 mls/hr AD PRN IV POTASSIUM PROTOCOL 12/23/24 20:00 12/23/24 20:17 DC Potassium Chloride (K-Dur/Klor-Con 20meq) 20 meq AD PRN PO POTASSIUM PROTOCOL 12/23/24 20:00 01/22/25 19:59 Potassium Chloride (KCl 10% Elixir 20meq/15ml) 20 meq AD PRN PO POTASSIUM PROTOCOL 12/23/24 20:00 01/22/25 19:59 Sodium Chloride 1,000 ml @ 100 mls/hr Q10H IV 12/23/24 20:00 01/22/25 19:59 12/25/24 20:17 100 MLS/HR DIAGNOSTICS / RADIOLOGY: [ ] ASSESSMENT: Suspected Choledocholithiasis POA Right upper quadrant abdominal pain POA Acute calculous cholecystitis as per MRCP Transaminitis POA Suspected urinary tract infection POA Hypokalemia POA Nicotine dependence POA History of gallstones POA PLAN: Patient is s/p MRCP which showed acute calculous cholecystitis and choledocholithiasis. scheduled for lap cecilio today . We will start famotidine 20 mg IV b.i.d. for GI prophylaxis will replace electrolytes as needed per protocol We will add prn medication for fever,pain,cough , nausea and vomiting Counseled on smoking cessation Labs in a.m. CBC CMP and magnesium Encourage early ambulation and deep breathing exercise postprocedure. Continue with pain management for adequate pain control Further orders to follow depending on above results Case discussed with attending physician and came up with above treatment and plan of care. ATTESTATION BY PHYSICIAN I have seen and examined the patient. I reviewed the documentation, medical decision making, and treatment plan as noted by the mid-level provider above. I agree with the findings and plan of care. JOSE L STEWART MD, ELIZABETH NP Dec 26, 2024 11:07
[2024-12-26 11:42] LABS: HEPATITIS A IGM ANTIBODY Non-Reactive (Nonreactive); HEPATITIS B CORE IGM ANTIBODY Non-Reactive (Negative)
[2024-12-26] MEDS ORDERED: LIDOCAINE PF 100MG/5ML (2%) SYRINGE 5ML ONE (12:22)
[2024-12-26] MEDS ORDERED: SUCCINYLCHOLINE CHLORIDE 20 MG/ML 10 ML VIAL ONE (12:22)
[2024-12-26] MEDS ORDERED: GLYCOPYRROLATE 0.2 MG/ML 5 ML VIAL ONE (12:23)
[2024-12-26] MEDS ORDERED: NEOSTIGMINE METHYLSULFATE 1MG/ML IV ONE (12:23)
[2024-12-26] MEDS ORDERED: MIDAZOLAM HCL 1 MG/ML 2ML VIAL ONE (12:24)
[2024-12-26] MEDS: SUGAMMADEX SODIUM 200 MG/2 ML VIAL IV ONE (12:32)
[2024-12-26] MEDS: FAMOTIDINE 20MG VIAL IV ONE (12:33)
[2024-12-26] MEDS ORDERED: LIDOCAINE HCL 1% 20 ML VIAL ONE (12:47)
[2024-12-26] MEDS: LIDOCAINE HCL 1% 20 ML VIAL INJ ONE (13:48)
--- NOTE | 2024-12-26 14:40 | OP ---
Operative Note: DATE OF PROCEDURE: 12/26/24 SURGEON: JOHN MIRAMONTES DO ASSISTANT MEN'S SOCCER COACH: None ANESTHESIA: General ANESTHESIOLOGIST/CONTRACT IMPLEMENTATION ANALYST: GRISELDA Pleitez PREOPERATIVE DIAGNOSIS: Acute cholecystitis POSTOPERATIVE DIAGNOSIS: Acute cholecystitis SYNOPSIS: None PROCEDURE: Laparoscopic cholecystectomy ESTIMATED BLOOD LOSS: 15 cc INDICATIONS: This is a 24-year-old female with several days of right upper quadrant abdominal pain. On imaging she had cholelithiasis. Patient had a mild elevation in her bilirubin. MRCP showed no choledocholithiasis. Patient's pain continued. On physical exam patient was tender to palpation in the right upper quadrant. I recommended laparoscopic cholecystectomy for acute cholecystitis. I discussed the procedure in detail with the patient. All questions were answered. The patient expressed understanding and agreement with the plan. DESCRIPTION OF PROCEDURE: Patient was placed on the operating table in the supine position with arms outstretched. After adequate sedation the patient was intubated by anesthesia. Perioperative antibiotics were given. The patient's abdomen was prepped and draped in the usual sterile fashion. A timeout was performed. Local anesthetic was infiltrated into the skin and soft tissue of the proposed supraumbilical skin incision. A transverse supraumbilical skin incision was made and dissection was carried down to the level of the fascia. The fascia was elevated using Kenzie clamps and incised. The peritoneum was e ntered bluntly. A 12 mm Leblanc balloon port was placed into the abdomen. The abdomen was insufflated and the patient tolerated insufflation well. A camera was inserted into the peritoneal cavity and all 4 quadrants of the abdomen were inspected and found to be grossly normal without any evidence of inadvertent injury. 3 additional 5 mm ports were placed in the subxiphoid and 2 in the right upper quadrant. The patient was placed in head up and right side up position. The gallbladder fundus was grasped and retracted cephalad. Thin adhesions to the duodenum were taken down bluntly. The gallbladder appeared edematous. The hepatocystic triangle was dissected clear of fat and peritoneum until one tubular structure was identified exiting the tapering Camargo's pouch. After the critical view was obtained the cystic artery was serially clipped and ligated. The cystic duct was then serially clipped and ligated and the gallbladder was removed from the gallbladder fossa using electrocautery and placed in an Endo Catch bag for later retrieval. The liver bed was checked for hemostasis. Small bleeding at the peritoneal edges on the liver were cauterized. The area was irrigated with sterile saline. The 5 mm ports were removed under direct visualization and found to be hemostatic. The gallbladder was removed and handed off for routine pathology. The fascia of the 12 mm port site was approximated using a single [id number] suture of 0 Vicryl. The skin was approximated using 4-0 Monocryl in a subcuticular fashion. The wounds were dressed with Dermabond. All instrument, needle, and sponge counts were correct at the end of the procedure. The patient tolerated the procedure well. The patient was aroused from sedation, extubated, and transferred to the postan esthesia care unit in good condition. JOHN MIRAMONTES DO Dec 26, 2024 14:40
[2024-12-27 03:39] VITALS: BP 95/55; PULSE 54; RESP 16; TEMP 98.1
[2024-12-27 05:54] LABS: IMMATURE GRANULOCYTE ABSOLUTE 0.04 K/uL (0-1); NUCLEATED RED BLOOD CELLS 0.0 % (0.0-0.19); PLATELET COUNT (AUTO) 249 K/uL (130-400); RED BLOOD CELL COUNT(AUTO) 3.84 MIL/uL (4.00-5.50); RED CELL DISTRIBUTION WIDTH 14.7 % (11.0-15.5); WHITE BLOOD COUNT (AUTO) 10.9 K/uL (4.8-10.8)
[2024-12-27 06:56] LABS: ASPARTATE AMINOTRANSFERASE 42.0 U/L (10-37); CREATININE 0.7 mg/dL (0.5-1.0); GLOMERULAR FILTR. RATE CALC 123.0 mL/min (>90); GLUCOSE,RANDOM 109.0 mg/dL (70-105); SODIUM SERUM 141.0 mmol/L (136-145); TOTAL PROTEIN, SERUM 6.7 g/dL (6.0-8.3); UREA NITROGEN, BLOOD 10.0 mg/dL (7-18)
[2024-12-27 07:45] VITALS: BP 116/77; PULSE 62; RESP 18; TEMP 98.1
[2024-12-27 08:00] VITALS: O2SAT 98
--- NOTE | 2024-12-27 09:11 | DS ---
Discharge Summary Hospital Course Summary: 12/23 This is a 24-year-old female with past medical history of gallstone who presents to the ED for complaints of right upper quadrant pain which travels towards her right chest associated with nausea and vomiting started last Wednesday.Patient states she had pizza last and following day after waking up she started having abdominal pain around right upper quadrant and pain intensity has gradually intensified today and she became nauseated and had 1 episode of nonbloody vomiting associated with chills so she decided to come to the ED for evaluation.Patient reports every time she eats pizza this happened to her,last time a month ago she had similar problem after she had pizza she started having pain and she was told a month ago at the urgent care she has gallstones.Patient reports her last bowel movement was 1 week ago. Patient reports,she always have spicy food in her daily meal. Seen and examined patient in the ER awaker,alert and coherent,appears comfortable.Patient reports she just had pain medication she said.Patient denies chest pain,palpitation shortness of breath and diarrhea. Latest vital signs temperature 98.4, heart rate 70, blood pressure 106/76 saturation 98% on room air. Labs: Hemoglobin 12, hematocrit 38, platelet count 297. Potassium 3.4, total bilirubin 2.1, direct bilirubin 1.6, AST 558 ALT 681 alkaline phosphatase 147 troponin less than four. Urinalysis significant for protein, urine bilirubin two, urine urobilinogen four leuko esterase 25 urine RBC 2-5 urine hCG negative. Abdominal ultrasound result revealed multiple gallbladder calculi. Chest x-ray result is unremarkable. While in the ER patient received 1 L NS bolus, morphine 4 mg IV, Zofran 4 mg IV Protonix 40 mg IV and Zosyn IV. We will admit patient for further medical management. 12/24 patient was seen by BONDING EQUIPMENT OPERATOR and physician during rounding in room 313. Patient was evaluated by the surgeon and at this moment they recommending MRCP. If MRCP we will be negative patient will be scheduled for cholecystectomy during this hospitalization. NPO for procedure. GI consulted for ERCP. Urinalysis positive for leukocytosis. Final urine culture still pending. Patient continues to be on Zosyn. We will continue to monitor patient in the meantime. A.m. labs. 12/25 patient was seen by nurse practitioner and physician during rounding. Patient is s/p MRCP which showed acute calculous cholecystitis and choledocholithiasis. Patient is pending ERCP today afternoon. Surgery on standby. Patient will receive 40 mEq of potassium for potassium of 3.6. Liver function test has improved compared to the previous day. We will continue to monitor patient in the meantime. A.m. labs.] 12/26/24 patient is scheduled for lap cecilio. Encouraged patient early ambulation postprocedure. Deep breathing exercise. Patient denied chest pain or shortness for breath 12/27/24 patient is doing well postop day one lap cecilio recuperating well tolerating diet no abdominal pain no nausea and vomiting patient is passing fluctuance . Patient to follow-up with general surgeon one-week postoperative visit advised patient no heavy lifting greater than 10 lb until cleared by general surgeon. To avoid greasy foods. [id number] Tylenol for pain as directed. Urine cultures strep B we will be discharged on cefdinir 300 mg p.o. b.i.d. for all questions and concerns addressed. Procedure(s): Operative Note: DATE OF PROCEDURE: 12/26/24 SURGEON: JOHN MIRAMONTES DO FORESTRY FACULTY MEMBER: None ANESTHESIA: General ANESTHESIOLOGIST/MICROSCOPIST: GRISELDA Pleitez PREOPERATIVE DIAGNOSIS: Acute cholecystitis POSTOPERATIVE DIAGNOSIS: Acute cholecystitis SYNOPSIS: None PROCEDURE: Laparoscopic cholecystectomy ESTIMATED BLOOD LOSS: 15 cc INDICATIONS: This is a 24-year-old female with several days of right upper quadrant abdominal pain. On imaging she had cholelithiasis. Patient had a mild elevation in her bilirubin. MRCP showed no choledocholithiasis. Patient's pain continued. On physical exam patient was tender to palpation in the right upper quadrant. I recommended laparoscopic cholecystectomy for acute cholecystitis. I discussed the procedure in detail with the patient. All questions were answered. The patient expressed understanding and agreement with the plan. DESCRIPTION OF PROCEDURE: Patient was placed on the operating table in the donovan pine position with arms outstretched. After adequate sedation the patient was intubated by anesthesia. Perioperative antibiotics were given. The patient's abdomen was prepped and draped in the usual sterile fashion. A timeout was performed. Local anesthetic was infiltrated into the skin and soft tissue of the proposed supraumbilical skin incision. A transverse supraumbilical skin incision was made and dissection was carried down to the level of the fascia. The fascia was elevated using Kenzie clamps and incised. The peritoneum was entered bluntly. A 12 mm Leblanc balloon port was placed into the abdomen. The abdomen was insufflated and the patient tolerated insufflation well. A camera was inserted into the peritoneal cavity and all 4 quadrants of the abdomen were inspected and found to be grossly normal without any evidence of inadvertent injury. 3 additional 5 mm ports were placed in the subxiphoid and 2 in the right upper quadrant. The patient was placed in head up and right side up position. The gallbladder fundus was grasped and retracted cephalad. Thin adhesions to the duodenum were taken down bluntly. The gallbladder appeared edematous. The hepatocystic triangle was dissected clear of fat and peritoneum until one tubular structure was identified exiting the tapering Camargo's pouch. After the critical view was obtained the cystic artery was serially clipped and ligated. The cystic duct was then serially clipped and ligated and the gallbladder was removed from the gallbladder fossa using electrocautery and placed in an Endo Catch bag for later retrieval. The liver bed was checked for hemostasis. Small bleeding at the peritoneal edges on the liver were cauterized. The area was irrigated with sterile saline. The 5 mm ports were removed under direct visualization and found to be hemostatic. The gallbladder was removed and handed off for routine pathology. The fascia of the 12 mm port site was approximated using a single mecpzt-xd-[id number] suture of 0 Vicryl. The skin was approximated using 4-0 Monocryl in a subcuticular fashion. The wounds were dressed with Dermabond. All instrument, needle, and sponge counts were correct at the end of the procedure. The patient tolerated the procedure well. The patient was aroused from sedation, extubated, and transferred to the postanesthesia care unit in good condition. Assessment/Plan: Discharged dxs Suspected Choledocholithiasis POA s/p Lap cecilio Right upper quadrant abdominal pain POA Acute calculous cholecystitis as per MRCP s/p ERCP Transaminitis POA Suspected urinary tract infection POA strep Agalactiae Group B Hypokalemia POA Nicotine dependence POA History of gallstones POA PLAN: ADMISSION DATE: 12/23/2024 DISCHARGE DATE: 12/27/2024 DISPOSITION: Home CONDITION: Stable SHEARING MACHINE OPERATOR(S): General surgeon GI FOLLOW UP APPOINTMENT(S): General surgeon DR D[place] one wk PROCEDURES: ERCP, lap cecilio IMAGING (S) report attached to summary : Ultrasound abdomen, MRCP, ERCP MICROBIOLOGY: report attached to summary; ACTIVITY: ab sisi HOME MEDICATIONS none profile NEW MEDICATIONS cefdinir 300 mg po bid for 5 days, OTC: For pain as directed TEACHING: No heavy lifting greater than 10 lb until cleared by general surgeon keep incisions clean and dry wash with soap and water. Avoid greasy foods. Emergency instructions: The patient was instructed to present to the nearest Emergency Department or call 911 should their symptoms return or worsen. Discharge Instructions: REASON: suspected choledocholithiasis ORDERING PHYSICIAN: YRIS GUILLAUME SOW FARM MANAGER PROCEDURE: MRCP WO - MRCP(ABDWO)CHOLANGIOPANCREATOG ADDENDUM REPORT ADDENDUM: Results were shared by telephone at 19:59 pm on 12-24-24 and acknowledged by Charge Nurse, Mr Ray Benito /[place] EXAM: MRCP Abdomen without Intravenous Contrast. CLINICAL HISTORY: Suspected choledocholithiasis. TECHNIQUE: Multisequence, multiplanar magnetic resonance images of the abdomen. CONTRAST: None. COMPARISON: Sonogram dated 12/23/24. FINDINGS: MRCP: No intrahepatic biliary ductal dilation is present. Multiple 2 to 3mm size gallbladder calculi are seen. Mild gallbladder wall edema noted. The cystic duct and right and left hepatic ducts are unremarkable. Multiple 2 to 3mm size calculi noted in the mid common bile duct. Normal pancreatic duct. No biliary strictures are present. No choledocholithiasis. There is no gross abnormality appreciated within the visualized liver, pancreas, spleen, adrenals, or kidneys. IMPRESSIONS: Acute calculus cholecystitis and choledocholithiasis. REASON: abd pain ORDERING PHYSICIAN: JOSE BLEVINS SOW FARM MANAGER PROCEDURE: [id number] - US ABDOMINAL RUQ\LTD EXAM:US Abdomen, Right Upper Quadrant. CLINICAL HISTORY: Abdominal pain TECHNIQUE: Right upper quadrant sonography performed with image documentation. COMPARISON: None provided. FINDINGS: LIVER: Within normal limits in size and echogenicity. No mass. GALLBLADDER: Multiple gallbladder calculi are seen, the largest measuring up to 8.2 mm. No significant wall thickening is seen. COMMON BILE DUCT: Within normal limits in size. PANCREAS: The visualized pancreas appears within normal limits. The distal pancreas is obscured by bowel gas. RIGHT KIDNEY: Unremarkable. Normal renal contours. No renal mass or calculus. No hydronephrosis. IMPRESSION: 1. Multiple gallbladder calculi Home Medications: Active Scripts Cefdinir (Cefdinir) 300 Mg Capsule, 1 CAP PO BID for 5 Days, #10 CAP 0 Refills Prov:YULISSA MARIA NP 12/27/24 New Medications: Cefdinir (Cefdinir) 300 Mg Capsule 1 CAP PO BID for 5 Days, #10 CAP 0 Refills Time spent arranging discharge: 31-60 minutes ATTESTATION BY PHYSICIAN I have seen and examined the patient. I reviewed the documentation, medical decision making, and treatment plan as noted by the mid-level provider above. I agree with the findings and plan of care. JOSE L STEWART MD, ELIZABETH NP Dec 27, 2024 09:11
[2024-12-27] MEDS ORDERED: CEFD300C3 PO (09:16)
--- NOTE | 2024-12-27 10:03 | NUR ---
PATIENT DISCHARGED. IV REMOVED INTACT. ALL BELONGINGS GATHERED BY PATIENT AND TAKEN. EDUCATION PROVIDED ON LIFTING RESTRICTIONS AND DIET. PATIENT VERBALIZED UNDERSTANDING. ALL QUESTIONS AND CONCERNS ANSWERED. REFUSED TRANSPORTATION DOWNSTAIRS VIA WHEELCHAIR. AMBULATED DOWNSTAIRS ALERT AND ORIENTED X 4.
== END 2024-12-27 10:00 | disposition home or self-care (01) | DRG 418 ==
LOC: EDH 16:08 → EDHIP 19:53 → 3CH 21:11
PROVIDERS: ADMIT Hospitalist; ATTEND Hospitalist
PROC: 0FC98ZZ Extirpation of Matter from Common Bile Duct, Via Natural or Artificial Opening Endoscopic (ICD-10-PCS; 2024-12-25)
PROC: 0FT44ZZ Resection of Gallbladder, Percutaneous Endoscopic Approach (ICD-10-PCS; principal; 2024-12-26 13:41)
DX: K80.62 Calculus of gallbladder and bile duct with acute cholecystitis without obstruction (principal); N39.0 Urinary tract infection, site not specified; E87.6 Hypokalemia; F17.210 Nicotine dependence, cigarettes, uncomplicated; B95.1 Streptococcus, group B, as the cause of diseases classified elsewhere; K66.0 Peritoneal adhesions (postprocedural) (postinfection); Z82.49 Family history of ischemic heart disease and other diseases of the circulatory system; Z79.899 Other long term (current) drug therapy
CPT/HCPCS: 36415; 43262; 43264; 71045; 74181; 74328; 74330; 76705; 80048; 80053; 80061; 80074; 80076; 81001; 81025; 82150; 83690; 83735; 83880; 84145; 84484; 85025; 87086; 88304; 93005; 96361; 96374; 96375; 99285; A4606; C1769; C1773; G0378; J0330; J1100; J1885; J2003; J2250; J2270; J2405; J2470; J2543; J2704; J2710; J3010; J3475; J3480; J3490; J7030; Q9967; A4213; A4215; A4216; A4221; A4222; A4223; A4649; A4657; A4663; A6206; A7002; J0665; J1308

== ENCOUNTER 2025-03-13 16:02 | Emergency (ER) | payer BC ==
[~2025-03-13] VITALS: Ht 177.8 cm; Wt 86.2 kg
--- NOTE | 2025-03-13 16:10 | ERN ---
ED Note History of Present Illness Stated Complaint: VAG BLEED Chief Complaint: Vaginal Bleeding Time Seen by MD: 16:06 Dictation: PATIENT IS A 24-YEAR-OLD FEMALE COMING IN TODAY WITH COMPLAINTS OF VAGINAL BLEEDING AND CRAMPING ONSET THIS MORNING. NO FEVER NO CHILLS NO NAUSEA VOMITING GARCIA NO CHANGE IN URINATION. SHE STATES SHE IS APPROXIMATELY FOUR WEEKS ,A1, NO CARE. STATES SHE HAS A AN APPOINTMENT WITH DR. GENOVEVA CORNEJO HOWEVER IT IS NOT UNTIL NEXT WEEK. Allergies: Coded Allergies: No Known Drug Allergies (Unverified Allergy, Unknown, 02/07/17) Home Meds Active Scripts Cefdinir (Cefdinir) 300 Mg Capsule, 1 CAP PO BID for 5 Days, #10 CAP 0 Refills Prov:YULISSA MARIA CHRISTIANE 12/27/24 Past Medical History Past Medical History: Anxiety Surgical History: Other Surgical History Other: SELWYN GRANADOS History: Not Applicable : 4 Para: 2 Aborts: 1 RN Note Reviewed/Agreed w/PFSH: Yes Review of System Dictation CONSTITUTIONAL: NEGATIVE EXCEPT FOR HPI HEAD/FACE: NEGATIVE EXCEPT FOR HPI EENT: NEGATIVE EXCEPT FOR HPI RESPIRATORY: NEGATIVE EXCEPT FOR HPI GASTROINTESTINAL/ABDOMINAL: NEGATIVE EXCEPT FOR HPI GENITOURINARY: NEGATIVE EXCEPT FOR HPI VAGINAL BLEEDING PELVIC CRAMPING MUSCULOSKELETAL: NEGATIVE EXCEPT FOR HPI INTEGUMENTARY: NEGATIVE EXCEPT FOR HPI NEUROLOGICAL/PSYCH: NEGATIVE EXCEPT FOR HPI HEMATOLOGIC/LYMPHATIC: NEGATIVE EXCEPT FOR HPI ALL SYSTEMS NEGATIVE, EXCEPT NOTED ABOVE. 13 POINT REVIEW OF SYSTEMS ASSESSED AND ALL NEGATIVE EXCEPT FOR ABOVE. Initial Vital Sign VS Vital Signs Date Time Temp Pulse Resp B/P (MAP) Pulse Ox O2 Delivery O2 Flow Rate FiO2 03/13/25 16:05 98.2 67 18 134/77 97 Physical Exam Dictation VITAL SIGNS REVIEWED GENERAL APPEARANCE: ALERT, ORIENTED X 3, NO ACUTE DISTRESS, WELL DEVELOPED, NOURISHED. HEAD AND FACE: NON-TRAUMATIC. EYES: PERRL, PINK CONJUNCTIVAS, EYELID NO TRAUMA, ANTERIOR CHAMBER WITH ARCUS SENILIS. EARS: PINNAS INTACT AND NO SIGNS OF TRAUMA OR ERYTHEMA EAR CANALS CLEAR AND NO DISCHARGE TM NO ERYTHEMA NOSE: NO DISCHARGE, NO BLEEDING. OROPHARYNX: MOUTH NORMAL, TONGUE PINK, PHARYNX CLEAR,NO ERYTHEMA, TONSILS NO EXUDATES, NO ABSCESSES NOTED, MUCOUS MEMBRANE MOIST NECK: SUPPLE, NON-TENDER, NO THYROMEGALY, NO MASSES, NO JVD, NO BRUITS BREAST:DEFERRED CHEST:NO TENDERNESS, NO CREPITUS, NO PARADOXICAL MOVEMENT, NO RETRACTIONS LUNGS:CLEAR, WELL-VENTILATED, SYMMETRIC, NO RALES, NO WHEEZING, NO RHONCHI, NO STRIDOR, GOOD BREATH SOUNDS BILATERALLY HEART: REGULAR RATE, REGULAR RHYTHM, NO MURMUR, NO GALLOPS VASCULAR: NO PERIPHERAL EDEMA, ABDOMEN: SOFT, POSITIVE BOWEL SOUNDS, NONDISTENDED, NO GUARDING, NONTENDER, NO REBOUND, NO MASSES NO HEPATOMEGALY, NO SPLENOMEGALY, NO LAWRENCE'S SIGN, NO HERNIAS. RECTAL: DEFERRED GENITAL: DEFERRED NEUROLOGICAL: NORMAL SPEECH, MOTOR FUNCTION INTACT, SENSORY FUNCTION INTACT MUSCULOSKELETAL: NECK NONTENDER, FULL RANGE OF MOTION, BACK NONTENDER, FULL RANGE OF MOTION, EXTREMITIES: NONTENDER, FULL RANGE OF MOTION SKIN: COLOR PINK, DRY, NO TURGOR, NO RASH, NO LACERATIONS, NO ABRASIONS, NO CONTUSIONS. LYMPHATIC: DEFERRED Results (Laboratory/Radiology) Laboratory/Radiology Laboratory Tests Test 03/13/25 16:23 White Blood Count 8.8 K/uL (4.8-10.8) Red Blood Count 4.58 MIL/uL (4.00-5.50) Hemoglobin 11.5 g/dL (12.0-16.0) L Hematocrit 37.7 % (36-48) Mean Corpuscular Volume 82.3 fL (79-99) Mean Corpuscular Hemoglobin 25.1 pg (27.0-33.0) L Mean Corpuscular Hemoglobin Concent 30.5 g/dL (32.0-36.0) L Red Cell Distribution Width 15.1 % (11.0-15.5) Platelet Count 335 K/uL (130-400) Mean Platelet Volume 11.2 fL (7.5-10.5) H Immature Granulocyte % (Auto) 0.2 % (0-1) Neutrophils (%) (Auto) 56.8 % (40.0-77.0) Lymphocytes (%) (Auto) 35.0 % (21.0-51.0) Monocytes (%) (Auto) 6.7 % (3.0-13.0) Eosinophils (%) (Auto) 0.8 % (0.0-8.0) Basophils (%) (Auto) 0.5 % (0.0-5.0) Neutrophils # (Auto) 5.0 K/uL (1.8-7.7) Lymphocytes # (Auto) 3.1 K/uL (1.0-4.8) Monocytes # (Auto) 0.6 K/uL (0.1-1.0) Eosinophils # (Auto) 0.07 K/uL (0.00-0.70) Basophils # (Auto) 0.04 K/uL (0.00-0.20) Absolute Immature Granulocyte (auto 0.02 K/uL (0-1) Nucleated Red Blood Cells 0.0 % (0.0-0.19) Sodium Level 141 mmol/L (136-145) Potassium Level 3.9 mmol/L (3.5-5.1) Chloride Level 105 mmol/L (101-111) Carbon Dioxide Level 27 mmol/L (21-32) Blood Urea Nitrogen 13 mg/dL (7-18) Creatinine 0.7 mg/dL (0.5-1.0) Glomerular Filtration Rate Calc 123 mL/min (>90) Random Glucose 77 mg/dL (70-105) Total Calcium 8.7 mg/dL (8.5-10.1) Human Chorionic Gonadotropin, Quant 0 mIU/mL (0-5) 1625/OB ULTRASOUND DEMONSTRATES NO IUP AT THIS TIME. PATIENT SHOULD BE SEVEN WEEKS THREE DAYS BY WHEEL Labs Reviewed?: Yes ED Course ED Course Orders Procedure Category Date Status Time Cbc With Differential LAB 03/13/25 In Process 16:08 Hcg,Quantitative LAB 03/13/25 Complete 16:08 Us Ob <14 Weeks US 03/13/25 Resulted 16:08 Type And Screen BBK 03/13/25 In Process 16:08 Basic Metabolic Panel LAB 03/13/25 Complete 16:08 Vital Signs Date Time Temp Pulse Resp B/P (MAP) Pulse Ox O2 Delivery O2 Flow Rate FiO2 03/13/25 16:05 98.2 67 18 134/77 97 1710/SPOKE WITH PATIENT AT LENGTH REGARDING ULTRASOUND AND LABS. SHE IS AWARE THAT HCG IS 0, ULTRASOUND SHOWS NO SHE STATES THE REASON SHE CAME IN SHE HAD TAKEN COOL MANY HOME TEST AND THEN HAD AN ULTRASOUND DONE AND THE TECH TOLD HER IN[place]LACO, SHE WAS Medical Decision Making MDM MDM: DIFFERENTIAL DIAGNOSIS: ECTOPIC /MISCARRIED/INCOMPLETE MISCARRIAGE/ANEMIA/ELECTROLYTE IMBALANCE/DYSMENORRHEA RATIONALE: TESTS CONSIDERED AND ORDERED SECONDARY TO SHARED DECISION MAKING INCLUDE: LABS/ULTRASOUND PREVIOUS OUTSIDE RECORDS REVIEWED: OLD ER VISITS. RISK OF COMPLICATION AND/OR MORBIDITY OR MORTALITY OF PATIENT MANAGEMENT: NONE MEDICATIONS-PER MEDICATION RECONCILIATION NEED FOR HOSPITALIZATION: PATIENT DOES NOT MEET CRITERIA FOR HOSPITALIZATION. NONE NEED FOR EMERGENCY MAJOR/MINOR SURGERY: NO THERE ARE NO SOCIAL CONCERNS WITH THIS PATIENT. PRESCRIPTION DRUG MANAGEMENT NONE PRESCRIPTIONS WILL INCLUDE SYMPTOMATIC CARE PATIENT'S PRIOR EXTERNAL MEDICAL RECORDS FROM OTHER ER VISITS WERE REVIEWED BY ME INDICATED. PRIOR TESTING AND RESULTS FROM PREVIOUS VISITS WERE REVIEWED. PRIOR TESTS WERE TAKEN INTO ACCOUNT WITH MEDICAL DECISION MAKING AND RESOURCE UTILIZATION, INDEPENDENT HISTORIAN/HISTORIANS WERE USED TO OBTAIN COMPLETE MEDICAL HISTORY. I INDEPENDENTLY INTERPRETED THE TEST THAT WERE PERFORMED, RESULTS WERE REVIEWED BY ME AND CONSIDERED FINDINGS ON RADIOLOGY IF ORDERED. MEDICAL MANAGEMENT AND EXAMINATION INTERPRETATION DISCUSSIONS WERE HAD BY ME WITH OTHER QUALIFIED HEALTHCARE PROFESSIONALS INDICATED FOR THE PATIENT'S CARE. DX & DISP Disposition: Discharge Departure Impression: Primary Impression: Dysmenorrhea Condition: Stable Additional Instructions: FOLLOW-UP WITH PRIMARY CARE PROVIDER IN 1 TO 2 DAYS. TAKE MEDICATIONS DIRECTED HERE IN THE EMERGENCY ROOM. OKAY TO CONTINUE HOME MEDICATIONS UNLESS OTHERWISE DISCUSSED DURING YOUR VISIT IN THE EMERGENCY ROOM TODAY. RETURN TO YOUR NEAREST EMERGENCY ROOM IF SYMPTOMS WORSEN OR IF THERE IS NO IMPROVEMENT. CALL 911 IF YOU NEED IMMEDIATE ASSISTANCE. TAKE TYLENOL OR MOTRIN [id number] NEEDED AND IF NO CONTRAINDICATIONS ARE PRESENT. INCREASE ORAL HYDRATION. A WOUND CULTURE OR URINE CULTURE WAS ORDERED HERE IN THE EMERGENCY ROOM DEPARTMENT PLEASE FOLLOW-UP WITH PRIMARY CARE PROVIDER AND ADVISE THEM TO GET REPEAT PORTS FROM OUR FACILITY. IF YOU HAD ANY OLENA WRAP/SPLINTS THAT WERE APPLIED HERE, PLEASE DO NOT REMOVE THEM UNTIL YOU SEE YOUR PRIMARY CARE OR SPECIALTY. FOLLOW UP WITH YOUR PRIMARY CARE DOCTOR NEEDED FOR YOUR PELVIC CRAMPS. INCREASE YOUR WATER INTAKE. TAKE TYLENOL OR MOTRIN [id number] NEEDED FOR PAIN. Referrals: GERMAIN GARZA DO (PCP) Time of Disposition: 17:12 I have reviewed the case, and I agree with, Diagnosis and Plan DEB LAUP Mar 13, 2025 16:10
[2025-03-13 16:34] LABS: IMMATURE GRANULOCYTE ABSOLUTE 0.02 K/uL (0-1); NUCLEATED RED BLOOD CELLS 0.0 % (0.0-0.19); PLATELET COUNT (AUTO) 335 K/uL (130-400); RED BLOOD CELL COUNT(AUTO) 4.58 MIL/uL (4.00-5.50); RED CELL DISTRIBUTION WIDTH 15.1 % (11.0-15.5); WHITE BLOOD COUNT (AUTO) 8.8 K/uL (4.8-10.8)
--- NOTE | 2025-03-13 16:44 | HMCIMG ---
EXAM: US Obstetrical, Complete <14 weeks CLINICAL HISTORY: VAGINAL BLEEDING/CRAMPING. FOUR WEEKS NO CARE TECHNIQUE: Transvaginal imaging of the maternal pelvis and a <14 week gestation with image documentation. COMPARISON: None provided. FINDINGS: UTERUS: Measures 6.9 4.1 5.3 cm. Endometrial thickness is 6 mm. No intrauterine gestational sac is visualized at this time. RIGHT OVARY: Measures 2.8 1.2 2.5 cm. Vascularity preserved. LEFT OVARY: Measures 2.9 1.4 1.7 cm. Vascularity preserved.IMPRESSION: No intrauterine gestational sac visualized at this time. Correlate clinically and consider serial ?-hCG and follow-up ultrasound Vascularity preserved in both ovaries /[place]
[2025-03-13 16:51] LABS: CREATININE 0.7 mg/dL (0.5-1.0); GLOMERULAR FILTR. RATE CALC 123.0 mL/min (>90); GLUCOSE,RANDOM 77.0 mg/dL (70-105); SODIUM SERUM 141.0 mmol/L (136-145); UREA NITROGEN, BLOOD 13.0 mg/dL (7-18)
[2025-03-13 17:03] LABS: HCG,QUANTITATIVE 0.0 mIU/mL (0-5)
[2025-03-13 17:24] VITALS: BP 132/74; PULSE 74; RESP 20; TEMP 98.3; O2SAT 99
== END 2025-03-13 17:34 | disposition home or self-care (01) ==
LOC: EDH 16:02
DX: N94.6 Dysmenorrhea, unspecified (principal); F41.9 Anxiety disorder, unspecified
CPT/HCPCS: 36415; 76801; 76830; 80048; 84702; 85025; 86850; 86900; 86901; 99284